=== PATIENT | female | born 1960 ===

== ENCOUNTER 2017-04-15 11:50 | Inpatient (IN) | payer OTHER ==
[2017-04-15] MEDS ORDERED: Sodium Chloride 0.9% 1,000 ML ONE ×2 (12:21→16:42)
[2017-04-15] MEDS ORDERED: Albuterol-Ipratrop 3 mg / 0.5 (3 ml) UD ONE (12:22)
[2017-04-15 12:29] VITALS: BMI 28.7
[2017-04-15] MEDS ORDERED: Sodium Chloride 0.9% 1,000 ML IV ONE ×3 (12:30→12:52)
[2017-04-15] MEDS ORDERED: Albuterol-Ipratrop 3 mg / 0.5 (3 ml) UD INH STA (12:31)
--- NOTE | 2017-04-15 12:37 | C.PDOC ---
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 Patient has h/o rheumatoid arthritis, HTN and multiple myeloma, gets methotrexate since 2014, has never had prior side effect/reaction. She denies h /o asthma, CAD, CHF, CT, but admits to smoking history. PMD Dr. Holt Time Seen by Provider: 04/15/17 12:28 Chief Complaint (Nursing): Dizziness/Lightheaded History Per: Patient, EMS History/Exam Limitations: clinical condition (diaphoretic, sob) Current Symptoms Are (Timing): Still Present Current Respiratory Medications: See Home Med List Severity: Moderate Past Medical History Reviewed: Historical Data, Nursing Documentation, Vital Signs Vital Signs: Last Vital Signs Temp 98.5 F 04/19/17 07:30 Pulse 57 L 04/19/17 07:30 Resp 18 04/19/17 07:30 BP 141/82 04/19/17 07:30 Pulse Ox 98 04/21/17 08:51 - Medical History PMH: Rheumatoid Arthritis Other PMH: multiple myeloma Family History: States: No Known Family Hx Review Of Systems Except As Marked, All Systems Reviewed And Found Negative. Cardiovascular: Positive for: Other (chest pressure). Negative for: Palpitations Respiratory: Positive for: Shortness of Breath, Wheezing Gastrointestinal: Positive for: Nausea, Vomiting, Abdominal Pain, Diarrhea Neurological: Positive for: Dizziness Physical Exam - Physical Exam Appears: In Acute Distress Skin: Diaphoretic, Pale Head: Normacephalic Eye(s): bilateral: Normal Inspection Oral Mucosa: Moist Cardiovascular: Rhythm Regular (tachycardic ) Respiratory: Accessory Muscle Use (mild), No Rales, No Rhonchi, Wheezing ( expiratory wheezing B/L) Gastrointestinal/Abdominal: Normal Exam, Bowel Sounds, Soft, No Tenderness Extremity: No Calf Tenderness Neurological/Psych: Oriented x3 ED Course And Treatment - Laboratory Results Result Diagrams: 04/19/17 07:05 04/17/17 08:08 ECG: Interpreted By Me, Viewed By Me (NSE 97 bpm, nromal axis, no acute ST/T wave changes) ECG Interpretation: Normal O2 Sat by Pulse Oximetry: 98 (RA) Pulse Ox Interpretation: Normal - Other Rad CXR X-Ray: Viewed By Me, Read By Radiologist Interpretation: Accession No. : [id number]. Patient Name / ID : OMID NAGY / [id number]. Exam Date : 04/15/2017 12:34:41 ( Approved ). Study Comment : Sex / Age : F / 6Y. Creator : EKATERINA MADISON. Dictator : Masood Sims MD. House Detective : Chemical Engineering Teacher : Masood Sims MD. Approver2 : Report Date : 04/15/2017 12:50:39. My Comment : . PROCEDURE: CHEST RADIOGRAPH, 1 VIEW. HISTORY: SOB. COMPARISON: None available. FINDINGS: LUNGS: Poor inspiration with low lung volumes, mild crowded bronchovascular markings and mild bibasilar atelectasis right greater than left. PLEURA: No pneumothorax or pleural fluid seen. CARDIOVASCULAR: Normal. OSSEOUS STRUCTURES: No significant abnormalities. VISUALIZED UPPER ABDOMEN: Normal. OTHER FINDINGS: None. IMPRESSION: Poor inspiration with low lung volumes, mild crowded bronchovascular markings and mild bibasilar atelectasis right greater than left - CT Scan/US VQ SCAN Other Rad Studies (CT/US): Read By Radiologist, Radiology Report Reviewed CT/US Interpretation: Accession No. : [id number]. Patient Name / ID : OMID NAGY / [id number]. Exam Date : 04/15/2017 15:49:41 ( Approved ). Study Comment : Sex / Age : F Y. Creator : Sudhir Watts MD. Dictator : Sudhir Watts MD. House Detective : Chemical Engineering Teacher : Sudhir Watts MD. Approver2 : Report Date : 04/15/2017 16:57:51. My Comment : . This report is currently processing and HAS NOT BEEN OFFICIALLY SIGNED BY THE PHYSICIAN - ESTIMATED TIME OF APPROVAL IS 04/15/2017 17:02. COMPARISON: Not available. TECHNIQUE: 12.3 mCi technetium 99-m Xe-133 Gas. 3.4 mCI technetium 99-m MAA administered intravenously. FINDINGS: VENTILATION COMPONENT: No ventilatory defect. No significant air trapping. PERFUSION COMPONENT: Moderate circumscribed defect in the lower right lung, possibly artifact. No other perfusion defect identified. IMPRESSION: Intermediate probability ventilation perfusion scan for pulmonary embolism. Progress Note: Blood work, CXR, EKG, CTA chest ordered. Patient given multiple IV boluses, IV solumedrol, duoneb treatments, IV zofran. 15:00- Told by support services tech patient is unable to get CTA chest due to history of multiple myeloma, can have contrast reaction. Confirmed with Dr. Monge. VQ scan ordered. 17:30- Discussed patient with linux systems engineer Dr. Chau, he recommends telemetry admission for patient, thinks she has improved significantly and no longer needs ICU. VQ scan shows moderate prob for PE - SC Lovenox ordered. D-dimer ordered since unable to obtain CTA chest. VBG ordered. 17:51-Call placed to Dr Fernando Holt (Manager Money) to make aware of patients status. No answer Reevaluation Time: 17:30 Reassessment Condition: Improved (Patient significantly improved, states she feels much better. BP 133/60, POx 98% on RA, HR WNL.) - Physician Consult Information Physician Contacted: Amor Mcconnell Outcome Of Conversation: Discussed with Dr. Carmelo Mcconnell, agrees with admission to his service. Critical Care Time - Critical Care Note Total Time (in mins): 50 Documented critical care: time excludes all time spent performing seperately billable procedures. Medical Decision Making Medical Decision Making: differential diagnoses considered: PE, adverse reaction to methotrexate, septic shock, CT/ACS, multiple myeloma vs rheumatoid arthritis complication Disposition - Disposition Disposition: HOSPITALIZED Disposition Time: 17:19 Condition: FAIR - Clinical Impression Clinical Impression: Pulmonary embolism, Hypotension, Methotrexate adverse reaction, Rheumatoid arthritis, Near syncope Decision To Admit - Pt Status Changed To: Hospital Disposition Of: Inpatient - Admit Certification Admit to Inpatient:: After my assessment, the patient will require hospitalization for at least two midnights. This is because of the severity of symptoms shown, intensity of services needed, and/or the medical risk in this patient being treated as an outpatient. - InPatient: Physician Admission Certification: I certify that this patient requires 2 or more midnights of care for the following reason:: see notes - . Bed Request Type: Telemetry Admitting Physician: Amor Mcconnell Patient Diagnosis: Pulmonary embolism, Hypotension, Methotrexate adverse reaction, Rheumatoid arthritis, Near syncope
[2017-04-15 13:01] LABS: BASO # 0.1 K/uL (0.0-0.2); BASO % 0.6 % (0.0-2.0); EOS # 0.1 K/uL (0.0-0.7); EOS % 0.4 % (0.0-4.0); LYMPH # 2.9 K/uL (1.0-4.3); LYMPH % 23.1 % (20.0-40.0); MEAN CELL VOLUME 100.8 fL (81.0-99.0); MEAN CORPUSCULAR HEMOGLOBIN 33.3 pg (27.0-31.0); MEAN CORPUSCULAR HGB CONC 33.1 g/dL (33.0-37.0); MEAN PLATELET VOLUME 9.3 fL (7.2-11.7); MONO # 0.6 K/uL (0.0-0.8); MONO % 4.4 % (0.0-10.0); RED CELL DISTRIBUTION WIDTH 14.5 % (11.5-14.5); WHITE BLOOD COUNT 12.7 K/uL (4.8-10.8)
[2017-04-15 13:09] LABS: INR 0.9
[2017-04-15 13:41] LABS: ABG ALLEN TEST A; DRAW SITE LR
--- NOTE | 2017-04-15 13:54 | RAD ---
PROCEDURE: CHEST RADIOGRAPH, 1 VIEW HISTORY: SOB COMPARISON: None available. FINDINGS: LUNGS: Poor inspiration with low lung volumes, mild crowded bronchovascular markings and mild bibasilar atelectasis right greater than left PLEURA: No pneumothorax or pleural fluid seen. CARDIOVASCULAR: Normal. OSSEOUS STRUCTURES: No significant abnormalities. VISUALIZED UPPER ABDOMEN: Normal. OTHER FINDINGS: None. IMPRESSION: Poor inspiration with low lung volumes, mild crowded bronchovascular markings and mild bibasilar atelectasis right greater than left
[2017-04-15] MEDS ORDERED: Sodium Chloride 0.9% 500 ML IV ONE ×2 (14:11→15:11)
[2017-04-15 14:37] LABS: CHLORIDE 107 mmol/L (98-107)
[2017-04-15 14:38] LABS: POTASSIUM 3.2 mmol/L (3.6-5.2); SODIUM 140 mmol/L (132-148)
[2017-04-15 14:40] LABS: AST/SGOT 18 U/L (14-36); BILIRUBIN,TOTAL 0.5 mg/dL (0.2-1.3); BLOOD UREA NITROGEN 22 mg/dL (7-17); CARBON DIOXIDE 19 mmol/L (22-30); GFR AFRICAN-AMERICAN > 60; TOTAL PROTEIN 6.5 g/dL (6.3-8.3)
[2017-04-15 14:41] LABS: ALKALINE PHOSPHATASE 49 U/L (38-126); ALT/SGPT 27 U/L (9-52); CALCIUM 7.2 mg/dl (8.6-10.4); GLUCOSE,RANDOM 140 mg/dL (65-105)
[2017-04-15] MEDS ORDERED: Potassium Chloride 20 mEq ER Tab PO STA (14:55)
[2017-04-15] MEDS ORDERED: Potassium Chloride 20 mEq ER Tab PO ONE (16:42)
[2017-04-15] MEDS ORDERED: Sodium Chloride 0.9% 2,000 ML ONE (16:57)
--- NOTE | 2017-04-15 17:00 | NM ---
COMPARISON: Not available TECHNIQUE: 12.3 mCi technetium 99-m Xe-133 Gas. 3.4 mCI technetium 99-m MAA administered intravenously. FINDINGS: VENTILATION COMPONENT: No ventilatory defect. No significant air trapping. PERFUSION COMPONENT: Moderate circumscribed defect in the lower right lung, possibly artifact. No other perfusion defect identified. IMPRESSION: Intermediate probability ventilation perfusion scan for pulmonary embolism.
[2017-04-15] MEDS ORDERED: Enoxaparin 40 mg Syringe SC STA (17:28)
[2017-04-15] MEDS ORDERED: Enoxaparin 100 mg Syringe SC ONE (17:45)
[2017-04-15 18:06] LABS: RBC URINE 13 /hpf (0-3); URINE BACTERIA OCC (<OCC); URINE BILIRUBIN NEGATIVE (NEGATIVE); URINE BLOOD 1+ (NEGATIVE); URINE COLOR Yellow (YELLOW); URINE GLUCOSE (UA) 1+ mg/dL (Normal); URINE KETONE TRACE mg/dL (NEGATIVE); URINE LEUKOCYTE ESTERASE NEG Leu/uL (Negative); URINE PROTEIN NEGATIVE (NEGATIVE); URINE UROBILINOGEN NORMAL mg/dL (0.2-1.0); WBC URINE 7 /hpf (0-5)
[2017-04-15 18:28] LABS: VENOUS BLOOD GAS BASE EXCESS -8.7 mmol/L (0.0-2.0); VENOUS BLOOD GAS PCO2 43 mmHg (40-60); VENOUS BLOOD PH 7.24 (7.32-7.43)
[2017-04-15] MEDS ORDERED: ACETAMIN PO PRN (20:57)
[2017-04-15] MEDS ORDERED: BUTALBIT PO PRN (20:57)
[2017-04-15] MEDS ORDERED: CODEINE PO PRN (20:57)
[2017-04-15] MEDS ORDERED: CAFF PO PRN (20:57)
--- NOTE | 2017-04-15 21:08 | CP.PCM.HP ---
History of Present Illness - History of Present Illness History of Present Illness: 56-year-old female patient with past medical history of diabetes mellitus, hypertension, rheumatoid arthritis, multiple myeloma, herniated disc, anxiety, depression who presented to ER for cardiac evaluation of shortness of breath, dizziness and chest tightness for 1 day. 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 Patient has been recently seeing methotrexate treatment since 2014 and has never experienced this before. Patient reports that once she got home she developed lip/tongue numbness and a 5 episode of vomiting that continue while in the emergency room. Patient reports brownish color in 1 episode of vomiting. Admits to feeling as though she might pass out but never lost consciousness. Denies any recent episode of chest pain and shortness of breath on exertion prior to this episode. Patient also complained of orthopnea. Also complains for following several times in the last month. Present on Admission - Present on Admission Any Indicators Present on Admission: No Past Patient History - Past Medical History & Family History Past Medical History?: Yes - Past Social History Smoking Status: Light Smoker < 10 Cigarettes Daily - CARDIAC Hx Hypertension: Yes - NEUROLOGICAL Hx Migraine: Yes Other/Comment: brain tumor - ENDOCRINE/METABOLIC Hx Diabetes Mellitus Type 2: Yes Other/Comment: Multiple Myeloma - MUSCULOSKELETAL/RHEUMATOLOGICAL Hx Falls: No Hx Rheumatoid Arthritis: Yes - PSYCHIATRIC Hx Anxiety: Yes Hx Depression: Yes Hx Substance Use: No - SURGICAL HISTORY Hx Surgeries: No - ANESTHESIA Hx Anesthesia: No Meds Allergies/Adverse Reactions: Allergies Allergy/AdvReac Type Severity Reaction Status Date / Time No Known Allergies Allergy Verified 04/15/17 12:29 Physical Exam - Constitutional Appears: Well - Head Exam Head Exam: ATRAUMATIC, NORMAL INSPECTION, NORMOCEPHALIC - Eye Exam Eye Exam: EOMI, Normal appearance, PERRL Pupil Exam: NORMAL ACCOMODATION, PERRL - ENT Exam ENT Exam: Mucous Membranes Moist, Normal Exam - Neck Exam Neck exam: Positive for: Normal Inspection - Respiratory Exam Respiratory Exam: Decreased Breath Sounds - Cardiovascular Exam Cardiovascular Exam: REGULAR RHYTHM, +S1, +S2 - GI/Abdominal Exam GI & Abdominal Exam: Diminished Bowel Sounds, Soft - Rectal Exam Rectal Exam: Deferred Results - Vital Signs Recent Vital Signs: Last Vital Signs Temp 98.1 F 04/15/17 19:45 Pulse 92 H 04/15/17 19:45 Resp 20 04/15/17 19:45 BP 100/44 L 04/15/17 19:45 Pulse Ox 96 04/15/17 19:45 - Labs Result Diagrams: 04/19/17 07:05 04/17/17 08:08 Labs: Laboratory Results - last 24 hr 04/15/17 04/15/17 04/15/17 17:30 17:37 18:25 D-Dimer, Quantitative 2977 H pO2 22 L VBG pH 7.24 L VBG pCO2 43 VBG HCO3 16.2 VBG Total CO2 19.7 L VBG O2 Sat (Calc) 37.6 L VBG Base Excess -8.7 L VBG Potassium 4.0 Sodium 141.0 Chloride 112.0 H Glucose 259 H Lactate 4.1 H* Crit Value Called To Dr. arias Crit Value Called By Antonio casillas Crit Value Read Back Y Blood Gas Notified Time 1828 POC Glucose (mg/dL) Venous Blood Potassium 4.0 Urine Color Yellow Urine Clarity Hazy Urine pH 5.0 Ur Specific [place] 1.010 Urine Protein Negative Urine Glucose (UA) 1+ Urine Ketones Trace Urine Blood 1+ H Urine Nitrate Negative Urine Bilirubin Negative Urine Urobilinogen Normal Ur Leukocyte Esterase Neg Urine WBC (Auto) 7 H Urine RBC (Auto) 13 H Ur Squamous Epith Cells 3 Urine Bacteria Occ H 04/15/17 20:23 D-Dimer, Quantitative pO2 VBG pH VBG pCO2 VBG HCO3 VBG Total CO2 VBG O2 Sat (Calc) VBG Base Excess VBG Potassium Sodium Chloride Glucose Lactate Crit Value Called To Crit Value Called By Crit Value Read Back Blood Gas Notified Time POC Glucose (mg/dL) 311 H Venous Blood Potassium Urine Color Urine Clarity Urine pH Ur Specific [place] Urine Protein Urine Glucose (UA) Urine Ketones Urine Blood Urine Nitrate Urine Bilirubin Urine Urobilinogen Ur Leukocyte Esterase Urine WBC (Auto) Urine RBC (Auto) Ur Squamous Epith Cells Urine Bacteria Assessment & Plan (1) Dyspnea Status: Acute (2) HTN (hypertension) Status: Acute (3) Herniated disc Status: Acute (4) Hypotension Status: Acute (5) Methotrexate adverse reaction Status: Acute (6) Multiple myeloma Status: Acute (7) Near syncope Status: Acute (8) Near syncope Status: Acute (9) Pulmonary embolism Status: Acute (10) Pulmonary embolism Status: Acute (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
[2017-04-15] MEDS: Enoxaparin 100 mg Syringe SC SCH (22:01)
--- NOTE | 2017-04-16 09:44 | CP.PCM.CON ---
<Winsome Rosas - Last Filed: 04/16/17 12:41> History of Present Illness - History of Present Illness History of Present Illness: Cardiology Consult Note -Dr. Phillips Reason: Shortness of breath X 1 day HPI: This patient is a 56 year old female with past medical history of DM, HTN, Rheumatoid arthritis, Multiple myeloma, herniated disks, anxiety, depression, who is being seen for cardiac evaluation of shortness of breath, dizziness and chest tightness for 1 day. 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 She has been receiving MTX treatments since 2014 and has never experienced this before. Patient reports that once she got home she developed lip/tongue numbness and 5 episodes of vomiting that continued while in the emergency room. She reports brownish color in one episode of vomiting. Admits to feeling "as though she might pass out" but never lost consciousness. She denies any recent episodes of chest pain and shortness of breath on exertion prior to this episode. She reports that she sleeps with several pillows at night, however it does not change her ability to breathe. Patient reports that she has fallen several times in the last month, stating that her "leg went out", but does not report dizziness, LOC, trauma. She does report history of headaches secondary to her migraines. PMHx: DM, HTN, Rheumatoid arthritis, Multiple myeloma, herniated disks, migraines, anxiety, depression. Hospitalizations: none Surgeries: none Family History: Social: 20 pack year smoker Allergies: NKDA EKG: (04/16/17) Normal sinus rhythm, no acute ST changes, normal axis. Rate slightly elevated: 96 bpm. Chest X-ray: (mild crowded bronchovascular markings, mild bi-basilar atelectasis R>L VQ scan: intermediate probability ventilation perfusion scan for PE Troponins: 1: < 0.012 Review of Systems - Constitutional Constitutional: Frequent Falls, Headache. absent: Chills, Fever - EENT Ears: Dizziness Nose/Mouth/Throat: Nasal Congestion, Nasal Discharge - Cardiovascular Cardiovascular: Dyspnea. absent: Chest Pain (tightness), Chest Pain at Rest, Palpitations, Syncope - Respiratory Respiratory: absent: Cough, Dyspnea Past Patient History - Past Medical History & Family History Past Medical History?: Yes - Past Social History Smoking Status: Light Smoker < 10 Cigarettes Daily - CARDIAC Hx Hypertension: Yes - NEUROLOGICAL Hx Migraine: Yes Other/Comment: brain tumor - ENDOCRINE/METABOLIC Hx Diabetes Mellitus Type 2: Yes Other/Comment: Multiple Myeloma - MUSCULOSKELETAL/RHEUMATOLOGICAL Hx Falls: No Hx Rheumatoid Arthritis: Yes - PSYCHIATRIC Hx Anxiety: Yes Hx Depression: Yes Hx Substance Use: No - SURGICAL HISTORY Hx Surgeries: No - ANESTHESIA Hx Anesthesia: No Meds Allergies/Adverse Reactions: Allergies Allergy/AdvReac Type Severity Reaction Status Date / Time No Known Allergies Allergy Verified 04/15/17 12:29 - Medications Medications: Current Medications Alprazolam (Xanax) 0.5 mg PO BID PRN PRN Reason: Anxiety Amlodipine Besylate (Norvasc) 10 mg PO DAILY [facility] Aspirin (Aspirin Chewable) 81 mg PO DAILY [facility] Duloxetine HCl (Cymbalta) 60 mg PO DAILY [facility] Enoxaparin Sodium (Lovenox) 90 mg SC Q12 [facility] Last Admin: 04/15/17 22:01 Dose: 90 mg Ergocalciferol (Drisdol 50,000 Intl Units Cap) 1 cap PO QWK [facility] Folic Acid (Folic Acid) 1 mg PO DAILY [facility] Glipizide (Glucotrol Xl) 10 mg PO DAILY [facility] Home Med (Butalbit/Acetamin/Caff/Codeine [Ujtyqh-Uwlxdywedyu-Ixzi-Codein]) 1 cap PO Q8 PRN PRN Reason: Pain, moderate (4-7) Indomethacin (Indocin Sr) 75 mg PO DAILY [facility] Isosorbide Mononitrate (Imdur) 30 mg PO DAILY [facility] Lisinopril (Zestril) 40 mg PO BID [facility] Metformin HCl (Glucophage) 1,000 mg PO BID [facility] Last Admin: 04/15/17 21:57 Dose: 1,000 mg Metoprolol Succinate (Toprol Xl) 50 mg PO BID [facility] Pantoprazole Sodium (Protonix Ec Tab) 40 mg PO DAILY [facility] Rosuvastatin Calcium (Crestor) 20 mg PO HS [facility] Last Admin: 04/15/17 21:58 Dose: 20 mg Tramadol HCl (Ultram) 50 mg PO BID [facility] Last Admin: 04/16/17 06:37 Dose: 50 mg Zolpidem Tartrate (Ambien) 5 mg PO HS PRN PRN Reason: Insomnia Last Admin: 04/15/17 22:00 Dose: 5 mg Results - Vital Signs Recent Vital Signs: Last Vital Signs Temp 98.1 F 04/16/17 08:26 Pulse 80 04/16/17 08:26 Resp 20 04/16/17 08:26 BP 118/69 04/16/17 08:26 Pulse Ox 97 04/16/17 08:26 - Labs Result Diagrams: 04/15/17 12:56 04/15/17 14:10 Labs: Laboratory Results - last 24 hr 04/15/17 04/15/17 04/15/17 17:30 17:37 18:25 D-Dimer, Quantitative 2977 H pO2 22 L VBG pH 7.24 L VBG pCO2 43 VBG HCO3 16.2 VBG Total CO2 19.7 L VBG O2 Sat (Calc) 37.6 L VBG Base Excess -8.7 L VBG Potassium 4.0 Sodium 141.0 Chloride 112.0 H Glucose 259 H Lactate 4.1 H* Crit Value Called To Dr. arias Crit Value Called By Antonio casillas Crit Value Read Back Y Blood Gas Notified Time 1828 POC Glucose (mg/dL) Venous Blood Potassium 4.0 Urine Color Yellow Urine Clarity Hazy Urine pH 5.0 Ur Specific [place] 1.010 Urine Protein Negative Urine Glucose (UA) 1+ Urine Ketones Trace Urine Blood 1+ H Urine Nitrate Negative Urine Bilirubin Negative Urine Urobilinogen Normal Ur Leukocyte Esterase Neg Urine WBC (Auto) 7 H Urine RBC (Auto) 13 H Ur Squamous Epith Cells 3 Urine Bacteria Occ H 04/15/17 04/16/17 20:23 06:36 D-Dimer, Quantitative pO2 VBG pH VBG pCO2 VBG HCO3 VBG Total CO2 VBG O2 Sat (Calc) VBG Base Excess VBG Potassium Sodium Chloride Glucose Lactate Crit Value Called To Crit Value Called By Crit Value Read Back Blood Gas Notified Time POC Glucose (mg/dL) 311 H 164 H Venous Blood Potassium Urine Color Urine Clarity Urine pH Ur Specific [place] Urine Protein Urine Glucose (UA) Urine Ketones Urine Blood Urine Nitrate Urine Bilirubin Urine Urobilinogen Ur Leukocyte Esterase Urine WBC (Auto) Urine RBC (Auto) Ur Squamous Epith Cells Urine Bacteria Assessment & Plan (1) Dyspnea Assessment and Plan: 56 year old F with PMHx of DM, HTN, depression, anxiety, migraines, MM, RA presented overnight for numbness and tingling on the face. In the ED patient reports sudden onset of SOB. Patient given multiple IV boluses, IV solumedrol, duoneb treatments in the ED. Patient with elevated D. Dimer and abnormal LUNG VQ scan. Pulmonary Embolism treatment started in the ED. * Continue Lovenox 90 mg SC Q12H * Monitor on telemetry * f/u ECHO Patient undergoing neuro workup. Follow up recommendations. Imaging: EKG: (04/16/17) Normal sinus rhythm, no acute ST changes, normal axis. Rate slightly elevated: 96 bpm. Chest X-ray: (mild crowded bronchovascular markings, mild bi-basilar atelectasis R>L VQ scan: intermediate probability ventilation perfusion scan for PE Troponins: 1: < 0.012 Status: Acute (2) Near syncope Assessment and Plan: * Follow up ECHO * Follow up Carotid dopplers * Follow up orthostatic blood pressure check * EKG shows no arrhythmia or acute ST changes. Normal QTc. Patient undergoing neuro workup. Follow up recommendations. Status: Acute (3) HTN (hypertension) Assessment and Plan: Patient with hypotension on admission. Improved now. Amlodipine 10 mg PO Daily Lisinopril 20 mg PO daily Lopressor 50 mg PO BID Status: Acute (4) Pulmonary embolism Assessment and Plan: Patient with elevated D. Dimer and abnormal LUNG VQ scan. Pulmonary Embolism treatment started in the ED. * Continue Lovenox 90 mg SC Q12H Status: Acute - Assessment and Plan (Free Text) Assessment: Will discuss with Dr. Phillips <Bharath Phillips - Last Filed: 04/16/17 22:24> Meds - Medications Medications: Current Medications Acetaminophen/Butalbital/Caffeine (Fioricet) 1 tab PO BID PRN PRN Reason: Migraine headache Last Admin: 04/16/17 21:49 Dose: 1 tab Alprazolam (Xanax) 0.5 mg PO BID PRN PRN Reason: Anxiety Amlodipine Besylate (Norvasc) 10 mg PO DAILY [facility] Last Admin: 04/16/17 10:15 Dose: 10 mg Aspirin (Aspirin Chewable) 81 mg PO DAILY [facility] Last Admin: 04/16/17 13:26 Dose: 81 mg Duloxetine HCl (Cymbalta) 60 mg PO DAILY [facility] Last Admin: 04/16/17 10:16 Dose: 60 mg Enoxaparin Sodium (Lovenox) 90 mg SC Q12 [facility] Last Admin: 04/16/17 21:50 Dose: 90 mg Ergocalciferol (Drisdol 50,000 Intl Units Cap) 1 cap PO QWK [facility] Last Admin: 04/16/17 10:15 Dose: 1 cap Folic Acid (Folic Acid) 1 mg PO DAILY [facility] Last Admin: 04/16/17 10:15 Dose: 1 mg Glipizide (Glucotrol Xl) 10 mg PO DAILY [facility] Last Admin: 04/16/17 10:15 Dose: 10 mg Indomethacin (Indocin) 25 mg PO TID [facility] Isosorbide Mononitrate (Imdur) 30 mg PO DAILY [facility] Last Admin: 04/16/17 10:16 Dose: 30 mg Lisinopril (Zestril) 20 mg PO DAILY [facility] Last Admin: 04/16/17 10:16 Dose: 20 mg Metformin HCl (Glucophage) 1,000 mg PO BID [facility] Last Admin: 04/16/17 18:43 Dose: 1,000 mg Metoprolol Tartrate (Lopressor) 50 mg PO BID [facility] Last Admin: 04/16/17 18:41 Dose: Not Given Pantoprazole Sodium (Protonix Ec Tab) 40 mg PO DAILY [facility] Last Admin: 04/16/17 10:17 Dose: 40 mg Rosuvastatin Calcium (Crestor) 20 mg PO HS [facility] Last Admin: 04/16/17 21:49 Dose: 20 mg Zolpidem Tartrate (Ambien) 5 mg PO HS PRN PRN Reason: Insomnia Last Admin: 04/15/17 22:00 Dose: 5 mg Results - Vital Signs Recent Vital Signs: Last Vital Signs Temp 98.1 F 04/16/17 16:00 Pulse 67 04/16/17 16:00 Resp 18 04/16/17 16:00 BP 117/56 L 04/16/17 16:00 Pulse Ox 96 04/16/17 16:00 - Labs Result Diagrams: 04/15/17 12:56 04/15/17 14:10 Labs: Laboratory Results - last 24 hr 04/16/17 04/16/17 04/16/17 06:36 11:30 16:51 POC Glucose (mg/dL) 164 H 159 H 154 H Assessment & Plan - Assessment and Plan (Free Text) Plan: Patient seen and evaluated with the medical appointment clerk Agree with the plan - Date & Time Date: 04/16/17 Time: 13:30
[2017-04-16] MEDS: Apap-Butalbital-Caffeine 325-50-40mg Tab PO PRN ×2 (09:59→21:49)
[2017-04-16] MEDS ORDERED: Ergocalciferol 50,000 Intl Units Cap PO SCH (10:00)
[2017-04-16] MEDS ORDERED: Enoxaparin 40 mg Syringe SC SCH (10:00)
[2017-04-16] MEDS ORDERED: INDOMETHACIN 75 MG PO SCH (10:00)
[2017-04-16] MEDS: GlipiZIDE 10 mg SR Tab PO SCH (10:15)
[2017-04-16] MEDS: Pantoprazole 40 mg EC Tab PO SCH (10:17)
[2017-04-16] MEDS: Enoxaparin 100 mg Syringe SC SCH ×2 (10:17→21:50)
--- NOTE | 2017-04-16 10:35 | CON ---
DATE: 04/16/2017 REASON FOR CONSULTATION: Brain cyst and episode of almost passing out. HISTORY OF PRESENTING ILLNESS: The patient is a 56-year-old female who has been asked for evaluation of an episode of almost passing out and history of brain cyst. The patient said that she was in her doctor's office getting her infusion of methotrexate when patient felt dizzy and numbness and felt w as going to pass out. She has been getting these injections in the past, however, never passed out o r felt going to pass out before. At the moment, she feels fine. She does complain of some headaches . She has history of headaches in the past. REVIEW OF SYSTEMS: Positive for headache. Denies any chest pain, shortness of breath, abdominal omar n, constipation, diarrhea, dysuria, pyuria, cough, sputum production. PAST MEDICAL HISTORY: Includes rheumatoid arthritis, multiple myeloma. MEDICATIONS: At home include aspirin, Fioricet, Lipitor, tramadol, isosorbide mononitrate, methotrex ate, metformin, Zestril, Ambien, folic acid, duloxetine, alprazolam, Norvasc, glipizide, Toprol and i ndomethacin. ALLERGIES: No known drug allergies. SOCIAL HISTORY: She does smoke cigarettes. Denies use of alcohol or illicit drugs. FAMILY HISTORY: Reviewed and noncontributory to the case. PHYSICAL EXAMINATION: GENERAL: The patient is a middle-aged female, lying on the bed, in no acute distress. VITAL SIGNS: Her blood pressure is 118/69, heart rate is 80 per minute, breathing at a rate of 16 pe r minute, temperature is 98.1 degrees Fahrenheit. HEENT: Head is normocephalic, atraumatic. NECK: Supple. There are no carotid bruits. LUNGS: Clear. CARDIOVASCULAR: S1, S2 audible. No murmurs. ABDOMEN: Soft and nontender with bowel sounds present. NEUROLOGIC EXAMINATION: MENTAL STATUS: The patient is awake, alert, oriented to time, place, person. Speech is fluent. Nam ing and repetition normal. Memory and cognition are intact. CRANIAL NERVES: Pupils are 4 mm bilaterally, reactive to light. Visual landaverde are full. Extraocula r movements are intact. There is no facial asymmetry. Palate is upgoing bilaterally and tongue is m idline. MOTOR: Tone is normal. Power is 5/5 bilaterally in all extremities. Reflexes +2 and symmetrical. Plantars downgoing bilaterally. CEREBELLAR: [id number] shows no dysmetria. GAIT: Narrow based. Romberg negative. LABORATORIES: Reviewed, shows WBC of 12.7, hemoglobin 15.2, hematocrit 46.0 and platelets of 373. I NR is 0.9. Sodium is 140, potassium 3.2, chloride 107, carbon dioxide 19, BUN of 22, creatinine of 0 .7 and glucose of 140. IMPRESSION: 1. Status post near syncope. 2. History of colloid cysto of the brain. RECOMMENDATIONS: 1. The patient to have MRI of the brain without contrast. 2. The patient to have an electroencephalogram. 3. The patient to have cardiac monitoring to rule out any cardiac arrhythmias. 4. Please continue supportive care and other treatment. Thank you for the opportunity to participate in the care of this patient. Jean-Pierre Henriquez MD cc: [id number] TT: 04/16/2017 10:35:10 Confirmation # [id number] Dictation # [id number]
--- NOTE | 2017-04-16 11:06 | CP.PCM.CON ---
History of Present Illness - History of Present Illness History of Present Illness: Reason for consultation: Abnormal CT scan and chest tightness 56-year-old female with history of multiple myeloma and rheumatoid arthritis also with long history of smoking presented to emergency room complaining of numbness and near syncope. Patient states she was in her doctor's office getting infusion of methotrexate when she felt dizzy with numbness and was going to pass out. Patient states this was also associated with some chest tightness and shortness of breath. In the emergency room V/Q scan consistent with intermediate probability for pulmonary embolism. Patient was started on Lovenox. Denies shortness of breath, denies chest pain now. Denies cough, denies fever or chills. Review of Systems - Review of Systems All systems: reviewed and no additional remarkable complaints except (Dizziness , numbness , chest tightness) Past Patient History - Past Medical History & Family History Past Medical History?: Yes - Past Social History Smoking Status: Light Smoker < 10 Cigarettes Daily (USED to be a heavy smoker) - CARDIAC Hx Hypertension: Yes - NEUROLOGICAL Hx Migraine: Yes Other/Comment: brain tumor - ENDOCRINE/METABOLIC Hx Diabetes Mellitus Type 2: Yes Other/Comment: Multiple Myeloma - MUSCULOSKELETAL/RHEUMATOLOGICAL Hx Falls: No Hx Rheumatoid Arthritis: Yes - PSYCHIATRIC Hx Anxiety: Yes Hx Depression: Yes Hx Substance Use: No - SURGICAL HISTORY Hx Surgeries: No - ANESTHESIA Hx Anesthesia: No Meds Allergies/Adverse Reactions: Allergies Allergy/AdvReac Type Severity Reaction Status Date / Time No Known Allergies Allergy Verified 04/15/17 12:29 - Medications Medications: Current Medications Acetaminophen/Butalbital/Caffeine (Fioricet) 1 tab PO BID PRN PRN Reason: Migraine headache Last Admin: 04/16/17 09:59 Dose: 1 tab Alprazolam (Xanax) 0.5 mg PO BID PRN PRN Reason: Anxiety Amlodipine Besylate (Norvasc) 10 mg PO DAILY [facility] Last Admin: 04/16/17 10:15 Dose: 10 mg Aspirin (Aspirin Chewable) 81 mg PO DAILY [facility] Duloxetine HCl (Cymbalta) 60 mg PO DAILY [facility] Last Admin: 04/16/17 10:16 Dose: 60 mg Enoxaparin Sodium (Lovenox) 90 mg SC Q12 [facility] Last Admin: 04/16/17 10:17 Dose: 90 mg Ergocalciferol (Drisdol 50,000 Intl Units Cap) 1 cap PO QWK [facility] Last Admin: 04/16/17 10:15 Dose: 1 cap Folic Acid (Folic Acid) 1 mg PO DAILY [facility] Last Admin: 04/16/17 10:15 Dose: 1 mg Glipizide (Glucotrol Xl) 10 mg PO DAILY [facility] Last Admin: 04/16/17 10:15 Dose: 10 mg Indomethacin (Indocin Sr) 75 mg PO DAILY [facility] Isosorbide Mononitrate (Imdur) 30 mg PO DAILY [facility] Last Admin: 04/16/17 10:16 Dose: 30 mg Lisinopril (Zestril) 20 mg PO DAILY [facility] Last Admin: 04/16/17 10:16 Dose: 20 mg Metformin HCl (Glucophage) 1,000 mg PO BID [facility] Last Admin: 04/16/17 10:16 Dose: 1,000 mg Metoprolol Tartrate (Lopressor) 50 mg PO BID [facility] Last Admin: 04/16/17 10:16 Dose: 50 mg Pantoprazole Sodium (Protonix Ec Tab) 40 mg PO DAILY [facility] Last Admin: 04/16/17 10:17 Dose: 40 mg Rosuvastatin Calcium (Crestor) 20 mg PO HS [facility] Last Admin: 04/15/17 21:58 Dose: 20 mg Zolpidem Tartrate (Ambien) 5 mg PO HS PRN PRN Reason: Insomnia Last Admin: 04/15/17 22:00 Dose: 5 mg Physical Exam - Constitutional Appears: No Acute Distress - Head Exam Head Exam: ATRAUMATIC, NORMOCEPHALIC - Eye Exam Eye Exam: Normal appearance - ENT Exam ENT Exam: Mucous Membranes Moist - Neck Exam Neck exam: Positive for: Normal Inspection - Respiratory Exam Respiratory Exam: Clear to Auscultation Bilateral - Cardiovascular Exam Cardiovascular Exam: REGULAR RHYTHM - GI/Abdominal Exam GI & Abdominal Exam: Normal Bowel Sounds, Soft - Extremities Exam Extremities exam: Positive for: normal inspection - Neurological Exam Neurological exam: Alert, Oriented x3 Results - Vital Signs Recent Vital Signs: Last Vital Signs Temp 98.1 F 04/16/17 08:26 Pulse 78 04/16/17 10:22 Resp 20 04/16/17 08:26 BP 144/78 04/16/17 10:22 Pulse Ox 97 04/16/17 08:26 - Labs Result Diagrams: 04/15/17 12:56 04/15/17 14:10 Labs: Laboratory Results - last 24 hr 04/15/17 04/15/17 04/15/17 17:30 17:37 18:25 D-Dimer, Quantitative 2977 H pO2 22 L VBG pH 7.24 L VBG pCO2 43 VBG HCO3 16.2 VBG Total CO2 19.7 L VBG O2 Sat (Calc) 37.6 L VBG Base Excess -8.7 L VBG Potassium 4.0 Sodium 141.0 Chloride 112.0 H Glucose 259 H Lactate 4.1 H* Crit Value Called To Dr. arias Crit Value Called By Antonio casillas Crit Value Read Back Y Blood Gas Notified Time 1828 POC Glucose (mg/dL) Venous Blood Potassium 4.0 Urine Color Yellow Urine Clarity Hazy Urine pH 5.0 Ur Specific [place] 1.010 Urine Protein Negative Urine Glucose (UA) 1+ Urine Ketones Trace Urine Blood 1+ H Urine Nitrate Negative Urine Bilirubin Negative Urine Urobilinogen Normal Ur Leukocyte Esterase Neg Urine WBC (Auto) 7 H Urine RBC (Auto) 13 H Ur Squamous Epith Cells 3 Urine Bacteria Occ H 04/15/17 04/16/17 20:23 06:36 D-Dimer, Quantitative pO2 VBG pH VBG pCO2 VBG HCO3 VBG Total CO2 VBG O2 Sat (Calc) VBG Base Excess VBG Potassium Sodium Chloride Glucose Lactate Crit Value Called To Crit Value Called By Crit Value Read Back Blood Gas Notified Time POC Glucose (mg/dL) 311 H 164 H Venous Blood Potassium Urine Color Urine Clarity Urine pH Ur Specific [place] Urine Protein Urine Glucose (UA) Urine Ketones Urine Blood Urine Nitrate Urine Bilirubin Urine Urobilinogen Ur Leukocyte Esterase Urine WBC (Auto) Urine RBC (Auto) Ur Squamous Epith Cells Urine Bacteria Assessment & Plan (1) Pulmonary embolism Status: Acute Comment: VQ scan is intermediate probability for pulmonary embolism. Echocardiogram and venous Doppler of lower extremities. Continue Lovenox 1 mg per KG. Cardiology evaluation. Seen by neurology. Patient advised to quit smoking (2) Near syncope Status: Acute
--- NOTE | 2017-04-16 14:07 | CP.PCM.PN ---
Subjective - Date & Time of Evaluation Date of Evaluation: 04/16/17 Time of Evaluation: 10:40 - Subjective Subjective: clinically same Objective - Vital Signs/Intake and Output Vital Signs (last 24 hours): Temp Pulse Resp BP Pulse Ox 98.1 F 78 20 144/78 97 04/16/17 08:26 04/16/17 10:22 04/16/17 08:26 04/16/17 10:22 04/16/17 08:26 Intake and Output: 04/16/17 04/16/17 06:59 18:59 Intake Total 560 Balance 560 - Medications Medications: Current Medications Acetaminophen/Butalbital/Caffeine (Fioricet) 1 tab PO BID PRN PRN Reason: Migraine headache Last Admin: 04/16/17 09:59 Dose: 1 tab Alprazolam (Xanax) 0.5 mg PO BID PRN PRN Reason: Anxiety Amlodipine Besylate (Norvasc) 10 mg PO DAILY [facility] Last Admin: 04/16/17 10:15 Dose: 10 mg Aspirin (Aspirin Chewable) 81 mg PO DAILY [facility] Last Admin: 04/16/17 13:26 Dose: 81 mg Duloxetine HCl (Cymbalta) 60 mg PO DAILY [facility] Last Admin: 04/16/17 10:16 Dose: 60 mg Enoxaparin Sodium (Lovenox) 90 mg SC Q12 [facility] Last Admin: 04/16/17 10:17 Dose: 90 mg Ergocalciferol (Drisdol 50,000 Intl Units Cap) 1 cap PO QWK [facility] Last Admin: 04/16/17 10:15 Dose: 1 cap Folic Acid (Folic Acid) 1 mg PO DAILY [facility] Last Admin: 04/16/17 10:15 Dose: 1 mg Glipizide (Glucotrol Xl) 10 mg PO DAILY [facility] Last Admin: 04/16/17 10:15 Dose: 10 mg Indomethacin (Indocin Sr) 75 mg PO DAILY [facility] Isosorbide Mononitrate (Imdur) 30 mg PO DAILY [facility] Last Admin: 04/16/17 10:16 Dose: 30 mg Lisinopril (Zestril) 20 mg PO DAILY [facility] Last Admin: 04/16/17 10:16 Dose: 20 mg Metformin HCl (Glucophage) 1,000 mg PO BID [facility] Last Admin: 04/16/17 10:16 Dose: 1,000 mg Metoprolol Tartrate (Lopressor) 50 mg PO BID [facility] Last Admin: 04/16/17 10:16 Dose: 50 mg Pantoprazole Sodium (Protonix Ec Tab) 40 mg PO DAILY [facility] Last Admin: 04/16/17 10:17 Dose: 40 mg Rosuvastatin Calcium (Crestor) 20 mg PO HS [facility] Last Admin: 04/15/17 21:58 Dose: 20 mg Zolpidem Tartrate (Ambien) 5 mg PO HS PRN PRN Reason: Insomnia Last Admin: 04/15/17 22:00 Dose: 5 mg - Labs Labs: PT 10.4 SECONDS (9.7-12.2) 04/15/17 12:56 INR 0.9 04/15/17 12:56 APTT 29 SECONDS (21-34) 04/15/17 12:56 - Constitutional Appears: Well - Head Exam Head Exam: ATRAUMATIC, NORMAL INSPECTION, NORMOCEPHALIC - Eye Exam Eye Exam: EOMI, Normal appearance, PERRL Pupil Exam: NORMAL ACCOMODATION, PERRL - ENT Exam ENT Exam: Mucous Membranes Moist, Normal Exam - Neck Exam Neck Exam: Full ROM, Normal Inspection. absent: Lymphadenopathy - Respiratory Exam Respiratory Exam: Decreased Breath Sounds - Cardiovascular Exam Cardiovascular Exam: REGULAR RHYTHM, +S1, +S2 - GI/Abdominal Exam GI & Abdominal Exam: Soft, Diminished Bowel Sounds - Rectal Exam Rectal Exam: Deferred Assessment and Plan (1) Dyspnea Status: Acute (2) HTN (hypertension) Status: Acute (3) Herniated disc Status: Acute (4) Hypotension Status: Acute (5) Methotrexate adverse reaction Status: Acute (6) Multiple myeloma Status: Acute (7) Near syncope Status: Acute (8) Near syncope Status: Acute (9) Pulmonary embolism Status: Acute (10) Pulmonary embolism Status: Acute (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
[2017-04-16] MEDS ORDERED: Potassium Chloride 10 mEq ER Tab PO STA (14:19)
[2017-04-16] MEDS ORDERED: Potassium Chloride 20 mEq ER Tab PO STA (14:21)
[2017-04-16] MEDS ORDERED: Gadodiamide 287 mg/ml 20 ml IV ONE (14:30)
--- NOTE | 2017-04-16 16:07 | MRI ---
PROCEDURE: MRI BRAIN WITH AND WITHOUT CONTRAST HISTORY: colloid cyst COMPARISON: None. TECHNIQUE: Multiplanar, multisequence MR images of the brain were obtained performed of following intravenous injection of approximately 16 cc of Omniscan contrast material. FINDINGS: HEMORRHAGE: No acute parenchymal, subarachnoid or extra-axial hemorrhage. No hemosiderin deposition identified on gradient echo weighted sequence. DWI: There are no acute or subacute infarcts seen on diffusion-weighted imaging. BRAIN PARENCHYMA: Small( approximately 5.2 mm x 4.3 mm x 2.6 mm) rounded/elliptical shaped nonenhancing focus of bright T1 in the dark T2 signal located at the level of the 3rd ventricle/foramen of Monro junction consistent with this patient's history of colloid cyst. No evidence of obstructive hydrocephalus. . There is a small dilated perivascular space right inferior basal ganglia. No additional parenchymal nor extra-axial masses. ENHANCEMENT: No definitive focal areas of abnormal contrast enhancement. No evidence of abnormal meningeal enhancement VENTRICLES: No hydrocephalus as above CRANIUM: The calvarium appears grossly unremarkable. ORBITS: Orbits and contents also unremarkable. PARANASAL SINUSES/MASTOIDS: Visualized paranasal sinuses are well-developed and currently well-aerated. There may be a few partially opacified mastoid air cells bilaterally. VASCULAR SYSTEM: Visualized major vascular flow voids at skull base are patent. OTHER FINDINGS: None . IMPRESSION: No evidence of acute intracranial hemorrhage or infarct. Small colloid cyst as described however there is no evidence of obstructive hydrocephalus.
--- NOTE | 2017-04-16 17:11 | CARD ---
APPROVED REPORT EXAM: Two-dimensional and M-mode echocardiogram with Doppler and color Doppler. Other Information Quality : AverageRhythm : NSR INDICATION Dizziness and Vertigo Dyspnea Congestive Heart Failure COPD POSSIBLE PE, RISK FACTORS Hypertension M-Mode DIMENSIONS RVDd1.07 (2.1-3.2cm)Left Atrium (MM)3.32 (2.5-4.0cm) IVSd0.81 (0.7-1.1cm)Aortic Root2.95 (2.2-3.7cm) LVDd6.05 (4.0-5.6cm)Aortic Cusp Exc.1.81 (1.5-2.0cm) PWd0.89 (0.7-1.1cm)FS (%) 26 % LVDs4.50 (2.0-3.8cm)LVEF (%)50 (>50%) Aortic Valve AoV Peak Xpfobzpw347.9cm/Sancho Peak GR.9mmHg Mitral Valve MV E Pjyterqx29.7cm/sMV A Sdjrnzaf71.7cm/sE/A ratio0.9 TDI E/Lateral E'0.0E/Medial E'0.0 Tricuspid Valve TR Peak Wadykoqm954xe/sTR Peak Gr.33wpGpSOSV27lyMq LEFT VENTRICLE The left ventricle is normal size. There is normal left ventricular wall thickness. The left ventricular function is normal. The left ventricular ejection fraction is within the normal range. about 65% No regional wall motion abnormalities noted. The left ventricular diastolic function is normal. No left ventricle thrombus noted on this study. There is no ventricular septal defect visualized. There is no left ventricular aneurysm. There is no mass noted in the left ventricle. RIGHT VENTRICLE The right ventricle is normal size. There is normal right ventricular wall thickness. The right ventricular systolic function is normal. ATRIA The left atrium size is normal. The right atrium size is normal. The interatrial septum is intact with no evidence for an atrial septal defect. AORTIC VALVE The aortic valve is normal in structure and function. No aortic regurgitation is present. There is no aortic valvular stenosis. There is no aortic valvular vegetation. MITRAL VALVE The mitral valve is normal in function. A calcified mass is attached to the anterior mitral valve leaflet, probably representing a calcified chordal attachment, which would be a normal variant. Clinical correlation. There is no evidence of mitral valve prolapse. There is no mitral valve stenosis. There is no mitral valve regurgitation noted. TRICUSPID VALVE The tricuspid valve is normal in structure and function. There is mild tricuspid valve regurgitation noted. There is no tricuspid valve prolapse or vegetation. There is no tricuspid valve stenosis. PULMONIC VALVE The pulmonary valve is normal in structure and function. There is no pulmonic valvular regurgitation. There is no pulmonic valvular stenosis. GREAT VESSELS The aortic root is normal in size. The ascending aorta is normal in size. The pulmonary artery is normal. The IVC is normal in size and collapses >50% with inspiration. PERICARDIAL EFFUSION The pericardium appears normal. There is no pleural effusion. <Conclusion> Normal LV EF and doppler A calcified mass is attached to the anterior mitral valve leaflet, probably representing a calcified chordal attachment, which would be a normal variant. Clinical correlation. A mobile clobular calcifed mass in the RV apex represents a focal clacification of a chordal attachment to the tricuspid valve..
--- NOTE | 2017-04-16 18:37 | CARD ---
APPROVED REPORT EKG Measurement Heart [id number] <Conclusion> Normal sinus rhythm Normal ECG
[2017-04-17 08:16] LABS: BASO % 0.3 % (0.0-2.0); EOS % 0.3 % (0.0-4.0); HEMATOCRIT 34.9 % (34.0-47.0); LYMPH # 2.2 K/uL (1.0-4.3); LYMPH % 26.9 % (20.0-40.0); MEAN CELL VOLUME 98.9 fL (81.0-99.0); MEAN CORPUSCULAR HEMOGLOBIN 33.8 pg (27.0-31.0); MEAN CORPUSCULAR HGB CONC 34.2 g/dL (33.0-37.0); MEAN PLATELET VOLUME 8.5 fL (7.2-11.7); MONO # 0.4 K/uL (0.0-0.8); MONO % 4.9 % (0.0-10.0); WHITE BLOOD COUNT 8.3 K/uL (4.8-10.8)
[2017-04-17 08:28] LABS: CHLORIDE 100 mmol/L (98-107); POTASSIUM 3.7 mmol/L (3.6-5.2); SODIUM 136 mmol/L (132-148)
[2017-04-17 08:31] LABS: BLOOD UREA NITROGEN 14 mg/dL (7-17); CALCIUM 8.6 mg/dl (8.6-10.4); CARBON DIOXIDE 27 mmol/L (22-30); GFR AFRICAN-AMERICAN > 60; GLUCOSE,RANDOM 135 mg/dL (65-105)
[2017-04-17] MEDS: GlipiZIDE 10 mg SR Tab PO SCH (10:32)
--- NOTE | 2017-04-17 10:32 | CP.PCM.PN ---
Subjective - Date & Time of Evaluation Date of Evaluation: 04/17/17 Time of Evaluation: 14:00 - Subjective Subjective: clinically same Objective - Vital Signs/Intake and Output Vital Signs (last 24 hours): Temp Pulse Resp BP Pulse Ox 98.1 F 65 20 146/88 96 04/17/17 09:14 04/17/17 09:14 04/17/17 09:14 04/17/17 09:14 04/17/17 09:14 Intake and Output: 04/17/17 04/17/17 06:59 18:59 Intake Total 110 Balance 110 - Medications Medications: Current Medications Acetaminophen/Butalbital/Caffeine (Fioricet) 1 tab PO BID PRN PRN Reason: Migraine headache Last Admin: 04/16/17 21:49 Dose: 1 tab Alprazolam (Xanax) 0.5 mg PO BID PRN PRN Reason: Anxiety Amlodipine Besylate (Norvasc) 10 mg PO DAILY [facility] Last Admin: 04/16/17 10:15 Dose: 10 mg Aspirin (Aspirin Chewable) 81 mg PO DAILY [facility] Last Admin: 04/16/17 13:26 Dose: 81 mg Duloxetine HCl (Cymbalta) 60 mg PO DAILY [facility] Last Admin: 04/16/17 10:16 Dose: 60 mg Enoxaparin Sodium (Lovenox) 90 mg SC Q12 [facility] Last Admin: 04/16/17 21:50 Dose: 90 mg Ergocalciferol (Drisdol 50,000 Intl Units Cap) 1 cap PO QWK [facility] Last Admin: 04/16/17 10:15 Dose: 1 cap Folic Acid (Folic Acid) 1 mg PO DAILY [facility] Last Admin: 04/16/17 10:15 Dose: 1 mg Glipizide (Glucotrol Xl) 10 mg PO DAILY [facility] Last Admin: 04/16/17 10:15 Dose: 10 mg Indomethacin (Indocin) 25 mg PO TID [facility] Isosorbide Mononitrate (Imdur) 30 mg PO DAILY [facility] Last Admin: 04/16/17 10:16 Dose: 30 mg Lisinopril (Zestril) 20 mg PO DAILY [facility] Last Admin: 04/16/17 10:16 Dose: 20 mg Metformin HCl (Glucophage) 1,000 mg PO BID [facility] Last Admin: 04/16/17 18:43 Dose: 1,000 mg Metoprolol Tartrate (Lopressor) 50 mg PO BID [facility] Last Admin: 04/16/17 18:41 Dose: Not Given Pantoprazole Sodium (Protonix Ec Tab) 40 mg PO DAILY [facility] Last Admin: 04/16/17 10:17 Dose: 40 mg Rosuvastatin Calcium (Crestor) 20 mg PO HS [facility] Last Admin: 04/16/17 21:49 Dose: 20 mg Zolpidem Tartrate (Ambien) 5 mg PO HS PRN PRN Reason: Insomnia Last Admin: 04/16/17 22:45 Dose: 5 mg - Labs Labs: 04/17/17 08:08 04/17/17 08:08 PT 10.4 SECONDS (9.7-12.2) 04/15/17 12:56 INR 0.9 04/15/17 12:56 APTT 29 SECONDS (21-34) 04/15/17 12:56 - Constitutional Appears: Well - Head Exam Head Exam: ATRAUMATIC, NORMAL INSPECTION, NORMOCEPHALIC - Eye Exam Eye Exam: EOMI, Normal appearance, PERRL Pupil Exam: NORMAL ACCOMODATION, PERRL - ENT Exam ENT Exam: Mucous Membranes Moist, Normal Exam - Neck Exam Neck Exam: Full ROM, Normal Inspection. absent: Lymphadenopathy - Respiratory Exam Respiratory Exam: Decreased Breath Sounds - Cardiovascular Exam Cardiovascular Exam: REGULAR RHYTHM, +S1, +S2 - GI/Abdominal Exam GI & Abdominal Exam: Soft, Diminished Bowel Sounds - Rectal Exam Rectal Exam: Deferred Assessment and Plan (1) Dyspnea Status: Acute (2) HTN (hypertension) Status: Acute (3) Herniated disc Status: Acute (4) Hypotension Status: Acute (5) Methotrexate adverse reaction Status: Acute (6) Multiple myeloma Status: Acute (7) Near syncope Status: Acute (8) Near syncope Status: Acute (9) Pulmonary embolism Status: Acute (10) Pulmonary embolism Status: Acute (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
[2017-04-17] MEDS: Enoxaparin 100 mg Syringe SC SCH ×2 (10:33→21:56)
[2017-04-17] MEDS: Pantoprazole 40 mg EC Tab PO SCH (10:33)
--- NOTE | 2017-04-17 12:19 | PN ---
DATE: 04/17/2017 SUBJECTIVE: The patient is lying on the bed, in no acute distress. Denies having any headache or di zziness at present. PHYSICAL EXAMINATION: VITAL SIGNS: Her blood pressure is 146/88, heart rate is 65 per minute, breathing at a rate of 16 pe r minute, temperature is 98.1 degrees Fahrenheit. HEENT: Normocephalic, atraumatic. NECK: Supple. There are no carotid bruits. LUNGS: Clear. CARDIOVASCULAR: S1, S2 audible. No murmurs. ABDOMEN: Soft and nontender with bowel sounds present. NEUROLOGIC EXAMINATION: MENTAL STATUS: The patient is awake, alert, oriented to time, place, and person. Speech is fluent. Naming and repetition normal. Memory and cognition are intact. CRANIAL NERVE EXAMINATION: Pupils are 4 mm bilaterally reactive to light. Visual landaverde are full. Extraocular movements are intact. There is no facial asymmetry. Palate is upgoing bilaterally and t ongue is midline. MOTOR EXAMINATION: Tone is normal. Power is 5/5 bilaterally in all extremities. Reflexes +1 and sy mmetrical. Plantars downgoing bilaterally. CEREBELLAR: [id number] shows no dysmetria. LABORATORY DATA: Labs reviewed. MRI of the brain shows no evidence of acute intracranial hemorrhage or infarct. Small colloid cysts; however, there is no evidence of obstructive hydrocephalus. IMPRESSION: 1. Status post near syncope. 2. History of colloid cyst of the brain. RECOMMENDATIONS: 1. The patient had a carotid ultrasound done. Please follow up the results. 2. The patient to have an electroencephalogram. 3. The patient had no further episodes of feeling like she is going to pass out. 4. Please continue other treatment and supportive care. Thank you for the opportunity to participate in the care of this patient. Jean-Pierre Henriquez MD cc: [id number] TT: 04/17/2017 12:18:12 Confirmation # [id number] Dictation # [id number] jose armando
--- NOTE | 2017-04-17 13:25 | VASCLAB ---
PROCEDURE: Lower Extremity Venous Duplex Exam. HISTORY: Leg pain PRIORS: None. TECHNIQUE: Bilateral common femoral, femoral, popliteal and posterior tibial, peroneal and great saphenous veins were evaluated. Flow was assessed with color Doppler, compressibility, assessment of phasic flow and augmentation response. Report prepared by KALEN Small, RVT FINDINGS: RIGHT: 1. Common Femoral Vein: 1.1. Compressibility - Fully compressible: Thrombus - None : Flow - Phasic: Augmentation -Normal: Reflux - None. 2. Femoral Vein: 2.1. Compressibility - Fully compressible: Thrombus - None : Flow - Phasic: Augmentation -Normal: Reflux - None. 3. Popliteal Vein: 3.1. Compressibility - Fully compressible: Thrombus - None : Flow - Phasic: Augmentation -Normal: Reflux - None. 4. Posterior Tibial Vein: 4.1. Compressibility - Fully compressible: Thrombus - None: Flow - Phasic: Augmentation -Normal: Reflux - None. 5. Peroneal Vein: 5.1. Compressibility - Fully compressible: Thrombus - None: Flow - Phasic: Augmentation -Normal: Reflux - None. 6. Great Saphenous Vein: 6.1. Compressibility - Fully compressible: Thrombus - None: Flow - Phasic: Augmentation - Normal: Reflux - None. LEFT: 1. Common Femoral Vein: 1.1. Compressibility - Fully compressible: Thrombus - None: Flow - Phasic: Augmentation -Normal: Reflux - None. 2. Femoral Vein: 2.1. Compressibility - Fully compressible: Thrombus - None: Flow - Phasic: Augmentation -Normal: Reflux - None. 3. Popliteal Vein: 3.1. Compressibility - Fully compressible: Thrombus - None : Flow - Phasic: Augmentation -Normal: Reflux - None. 4. Posterior Tibial Vein: 4.1. Compressibility - Fully compressible: Thrombus - None: Flow - Phasic: Augmentation -Normal: Reflux - None. 5. Peroneal Vein: 5.1. Compressibility - Fully compressible: Thrombus - None: Flow - Phasic: Augmentation -Normal: Reflux - None. 6. Great Saphenous Vein: 6.1. Compressibility - Fully compressible: Thrombus - None: Flow - Phasic: Augmentation - Normal: Reflux - None. OTHER FINDINGS: Right: None significant. Left: None significant. IMPRESSION: Right: No evidence of deep or superficial vein thrombosis of the right lower extremity. Normal valve function noted of the right side. Left: No evidence of deep or superficial vein thrombosis of the left lower extremity. Normal valve function noted of the left side.
--- NOTE | 2017-04-17 13:26 | VASCLAB ---
PROCEDURE: HISTORY: presyncope COMPARISON: None available. TECHNIQUE: Grayscale and duplex Doppler evaluation of the cervical carotid and vertebral arteries were performed. The common carotid, carotid bifurcations and cervical Internal Carotid Artery (ICA) and proximal External Carotid Artery (ECA) were evaluated. The vertebral arteries were evaluated for gross patency and flow direction. Report prepared by Yogesh Carrillo, BS, RVT FINDINGS: RIGHT CAROTID ARTERIES: 1. Common Carotid Artery: No significant focal plaque formation of the right common carotid artery. Maximum Peak Systolic velocity: 75 cm/sec: End-diastolic velocity 16 cm/sec. 2. Carotid Bifurcation: Calcific plaque formation. Maximum Peak Systolic velocity: 87 cm/sec: End-diastolic velocity 16 cm/sec. 3. Internal Carotid Artery: Minimal plaque formation of the right proximal ICA which does not result in hemodynamically significant stenosis. Plaque description: Calcific 3.1. Proximal Segment: Peak systolic velocity 92 cm/sec: End-diastolic velocity 22 cm/sec - % stenosis 0-15% 3.2. Middle Segment: Peak systolic velocity 77 cm/sec: End-diastolic velocity 22 cm/sec - % stenosis 0-15% 3.3. Distal Segment: Peak systolic velocity 86 cm/sec: End-diastolic velocity 30 cm/sec - % stenosis 0-15% 4. External Carotid Artery: No significant focal plaque formation. Peak systolic velocity 94 cm/sec 5. ICA/CCA Ratio: 1.2 LEFT CAROTID ARTERIES: 1. Common Carotid Artery: No significant focal plaque formation of the left common carotid artery. Maximum Peak Systolic velocity: 88 cm/sec: End-diastolic velocity 16 cm/sec. 2. Carotid Bifurcation: Calcific plaque formation. Maximum Peak Systolic velocity: 85 cm/sec: End-diastolic velocity 16 cm/sec. 3. Internal Carotid Artery: Minimal plaque formation of the left proximal ICA which does not result in hemodynamically significant stenosis. Plaque description: Heterogeneous 3.1. Proximal Segment: Peak systolic velocity 77 cm/sec: End-diastolic velocity 25 cm/sec - % stenosis 0-15% 3.2. Middle Segment: Peak systolic velocity 79 cm/sec: End-diastolic velocity 27 cm/sec - % stenosis 0-15% 3.3. Distal Segment: Peak systolic velocity 66 cm/sec: End-diastolic velocity 13 cm/sec - % stenosis 0-15% 4. External Carotid Artery: No significant focal plaque formation. Peak systolic velocity 122 cm/sec 5. ICA/CCA Ratio: 1.0 VERTEBRAL ARTERIES: 1. Right Vertebral Artery: The right vertebral artery flow direction is antegrade. 2. Left Vertebral Artery: The left vertebral artery flow direction is antegrade. OTHER FINDINGS: 1. Right Brachial Blood pressure: 168 mmHg. 2. Left Brachial Blood pressure: 166 mmHg. IMPRESSION: RIGHT: Duplex scan does not suggest hemodynamically significant stenosis of the right extracranial carotid arteries. LEFT: Duplex scan does not suggest hemodynamically significant stenosis of the left extracranial carotid arteries.
--- NOTE | 2017-04-17 14:28 | CP.PCM.PN ---
Subjective - Date & Time of Evaluation Date of Evaluation: 04/17/17 Time of Evaluation: 08:30 - Subjective Subjective: Patient seen and examined. Denies shortness of breath, denies fever or chills, denies chest pain Complaining of slight cough Denies headache Objective - Vital Signs/Intake and Output Vital Signs (last 24 hours): Temp Pulse Resp BP Pulse Ox 98.1 F 59 L 18 124/75 96 04/17/17 13:59 04/17/17 13:59 04/17/17 13:59 04/17/17 13:59 04/17/17 09:14 Intake and Output: 04/17/17 04/17/17 06:59 18:59 Intake Total 110 Balance 110 - Medications Medications: Current Medications Acetaminophen/Butalbital/Caffeine (Fioricet) 1 tab PO BID PRN PRN Reason: Migraine headache Last Admin: 04/16/17 21:49 Dose: 1 tab Alprazolam (Xanax) 0.5 mg PO BID PRN PRN Reason: Anxiety Amlodipine Besylate (Norvasc) 10 mg PO DAILY [facility] Last Admin: 04/17/17 10:33 Dose: 10 mg Aspirin (Aspirin Chewable) 81 mg PO DAILY [facility] Last Admin: 04/17/17 10:31 Dose: 81 mg Duloxetine HCl (Cymbalta) 60 mg PO DAILY [facility] Last Admin: 04/17/17 10:31 Dose: 60 mg Enoxaparin Sodium (Lovenox) 90 mg SC Q12 [facility] Last Admin: 04/17/17 10:33 Dose: 90 mg Ergocalciferol (Drisdol 50,000 Intl Units Cap) 1 cap PO QWK [facility] Last Admin: 04/16/17 10:15 Dose: 1 cap Folic Acid (Folic Acid) 1 mg PO DAILY [facility] Last Admin: 04/17/17 10:32 Dose: 1 mg Glipizide (Glucotrol Xl) 10 mg PO DAILY [facility] Last Admin: 04/17/17 10:32 Dose: 10 mg Indomethacin (Indocin) 25 mg PO TID [facility] Last Admin: 04/17/17 13:08 Dose: 25 mg Isosorbide Mononitrate (Imdur) 30 mg PO DAILY [facility] Last Admin: 04/17/17 10:32 Dose: 30 mg Lisinopril (Zestril) 20 mg PO DAILY [facility] Last Admin: 04/17/17 10:34 Dose: 20 mg Metformin HCl (Glucophage) 1,000 mg PO BID [facility] Last Admin: 04/17/17 10:32 Dose: 1,000 mg Metoprolol Tartrate (Lopressor) 50 mg PO BID [facility] Last Admin: 04/17/17 10:33 Dose: 50 mg Pantoprazole Sodium (Protonix Ec Tab) 40 mg PO DAILY [facility] Last Admin: 04/17/17 10:33 Dose: 40 mg Rosuvastatin Calcium (Crestor) 20 mg PO HS [facility] Last Admin: 04/16/17 21:49 Dose: 20 mg Topiramate (Topamax) 25 mg PO BID [facility] Last Admin: 04/17/17 13:08 Dose: 25 mg Zolpidem Tartrate (Ambien) 5 mg PO HS PRN PRN Reason: Insomnia Last Admin: 04/16/17 22:45 Dose: 5 mg - Labs Labs: 04/17/17 08:08 04/17/17 08:08 PT 10.4 SECONDS (9.7-12.2) 04/15/17 12:56 INR 0.9 04/15/17 12:56 APTT 29 SECONDS (21-34) 04/15/17 12:56 - Constitutional Appears: No Acute Distress - Head Exam Head Exam: ATRAUMATIC, NORMOCEPHALIC - Eye Exam Eye Exam: Normal appearance - ENT Exam ENT Exam: Mucous Membranes Moist - Neck Exam Neck Exam: Normal Inspection - Respiratory Exam Respiratory Exam: Clear to Ausculation Bilateral - Cardiovascular Exam Cardiovascular Exam: REGULAR RHYTHM - GI/Abdominal Exam GI & Abdominal Exam: Soft, Normal Bowel Sounds - Extremities Exam Extremities Exam: Normal Inspection - Neurological Exam Neurological Exam: Alert Assessment and Plan (1) Pulmonary embolism Assessment & Plan: VQ scan consistent with intermediate probability for pulmonary embolism Venous Dopplers of legs negative for DVT Echocardiogram showed no right-sided strain or dilatation Unable to get CT angiogram with history of multiple myeloma Continue anticoagulation for now Status: Acute (2) Near syncope Status: Acute
--- NOTE | 2017-04-17 15:03 | EEG ---
DATE: 04/16/2017 INTRODUCTION: This is a digitally recorded EEG monitoring using standard EEG montages. BACKGROUND RHYTHM: The EEG shows a background activity of 9-10 Hz alpha activity in parietooccipital region. The EEG activity is bilaterally symmetrical and synchronous. There is attenuation of the b ackground activity on eye opening. Small amount of movement artifact noticed in this EEG recording. ABNORMAL POTENTIALS: No spikes, sharp waves or focal slowing was seen. PHOTIC STIMULATION AND HYPERVENTILATION: Photic stimulation did not reveal any abnormality. Hyperve ntilation was not performed. IMPRESSION: Normal electroencephalogram. No epileptiform activity seen in this electroencephalogram recording. Jean-Pierre Henriquez MD cc: [id number] TT: 04/17/2017 15:02:25 Confirmation # [id number] Dictation # [id number] [email or web address]
[2017-04-17] MEDS: Apap-Butalbital-Caffeine 325-50-40mg Tab PO PRN (21:56)
--- NOTE | 2017-04-17 22:40 | CP.PCM.PN ---
Subjective - Date & Time of Evaluation Date of Evaluation: 04/17/17 Time of Evaluation: 11:05 - Subjective Subjective: Patient seen and evaluated Denies chest pain and dyspnea Normal EF by ECHO Review Of Systems Except As Marked, All Systems Reviewed And Found Negative. Cardiovascular: Positive for: Other (chest pressure). Negative for: Palpitations Respiratory: Positive for: Shortness of Breath, Wheezing Gastrointestinal: Positive for: Nausea, Vomiting, Abdominal Pain, Diarrhea Neurological: Positive for: Dizziness Physical Exam - Physical Exam Appears: In Acute Distress Skin: Diaphoretic, Pale Head: Normacephalic Eye(s): bilateral: Normal Inspection Oral Mucosa: Moist Cardiovascular: Rhythm Regular (tachycardic ) Respiratory: Accessory Muscle Use (mild), No Rales, No Rhonchi, Wheezing ( expiratory wheezing B/L) Gastrointestinal/Abdominal: Normal Exam, Bowel Sounds, Soft, No Tenderness Extremity: No Calf Tenderness Neurological/Psych: Oriented x3 Objective - Vital Signs/Intake and Output Vital Signs (last 24 hours): Temp Pulse Resp BP Pulse Ox 98.1 F 61 18 121/70 98 04/17/17 15:29 04/17/17 17:30 04/17/17 15:29 04/17/17 15:29 04/17/17 15:29 - Medications Medications: Current Medications Acetaminophen/Butalbital/Caffeine (Fioricet) 1 tab PO BID PRN PRN Reason: Migraine headache Last Admin: 04/17/17 21:56 Dose: 1 tab Alprazolam (Xanax) 0.5 mg PO BID PRN PRN Reason: Anxiety Amlodipine Besylate (Norvasc) 10 mg PO DAILY [facility] Last Admin: 04/17/17 10:33 Dose: 10 mg Aspirin (Aspirin Chewable) 81 mg PO DAILY [facility] Last Admin: 04/17/17 10:31 Dose: 81 mg Duloxetine HCl (Cymbalta) 60 mg PO DAILY [facility] Last Admin: 04/17/17 10:31 Dose: 60 mg Enoxaparin Sodium (Lovenox) 90 mg SC Q12 [facility] Last Admin: 04/17/17 21:56 Dose: 90 mg Ergocalciferol (Drisdol 50,000 Intl Units Cap) 1 cap PO QWK [facility] Last Admin: 04/16/17 10:15 Dose: 1 cap Folic Acid (Folic Acid) 1 mg PO DAILY [facility] Last Admin: 04/17/17 10:32 Dose: 1 mg Glipizide (Glucotrol Xl) 10 mg PO DAILY [facility] Last Admin: 04/17/17 10:32 Dose: 10 mg Indomethacin (Indocin) 25 mg PO TID [facility] Last Admin: 04/17/17 17:44 Dose: 25 mg Isosorbide Mononitrate (Imdur) 30 mg PO DAILY [facility] Last Admin: 04/17/17 10:32 Dose: 30 mg Lisinopril (Zestril) 20 mg PO DAILY [facility] Last Admin: 04/17/17 10:34 Dose: 20 mg Metformin HCl (Glucophage) 1,000 mg PO BID [facility] Last Admin: 04/17/17 17:44 Dose: 1,000 mg Metoprolol Tartrate (Lopressor) 50 mg PO BID [facility] Last Admin: 04/17/17 17:45 Dose: 50 mg Pantoprazole Sodium (Protonix Ec Tab) 40 mg PO DAILY [facility] Last Admin: 04/17/17 10:33 Dose: 40 mg Rosuvastatin Calcium (Crestor) 20 mg PO HS [facility] Last Admin: 04/17/17 21:55 Dose: 20 mg Topiramate (Topamax) 25 mg PO BID [facility] Last Admin: 04/17/17 21:57 Dose: 25 mg Zolpidem Tartrate (Ambien) 5 mg PO HS PRN PRN Reason: Insomnia Last Admin: 04/16/17 22:45 Dose: 5 mg - Labs Labs: 04/17/17 08:08 04/17/17 08:08 PT 10.4 SECONDS (9.7-12.2) 04/15/17 12:56 INR 0.9 04/15/17 12:56 APTT 29 SECONDS (21-34) 04/15/17 12:56 Assessment and Plan - Assessment and Plan (Free Text) Assessment: (1) Pulmonary embolism Assessment & Plan: VQ scan consistent with intermediate probability for pulmonary embolism Venous Dopplers of legs negative for DVT Echocardiogram showed no right-sided strain or dilatation Unable to get CT angiogram with history of multiple myeloma Continue anticoagulation for now Status: Acute (2) Near syncope Status: Acute
[2017-04-18 03:50] LABS: TOTAL PROTEIN, SERUM 7.3 g/dL (6.1-8.1)
[2017-04-18 15:06] LABS: ABNORMAL PROTEIN BAND 1 1.42 g/dL (None Detected); BETA 1 GLOBULIN 0.4 g/dL (0.4-0.6); BETA 2 GLOBULIN 0.3 g/dL (0.2-0.5); GAMMA GLOBULIN 1.7 g/dL (0.8-1.7)
--- NOTE | 2017-04-18 15:06 | CARD ---
APPROVED REPORT EKG Measurement Heart [id number] <Conclusion> Normal sinus rhythm Septal infarct, age undetermined Abnormal ECG
--- NOTE | 2017-04-18 15:07 | NM ---
PROCEDURE: Whole Body Bone Scan lingular everyone glenoid at but may again 9 amounts HISTORY: hx of multiple myloma COMPARISON: None available. TECHNIQUE: Following administration of 21.3 miCu of Tc MDP multiplanar whole body images were obtained. FINDINGS: Evidence for bony metastatic disease: None. Degenerative uptake: Incompletely visualized upper extremities primarily hands and wrists. Physiologic uptake: Normal physiologic activity in the kidneys. Other findings: None. IMPRESSION: No evidence of bony metastatic disease.
[2017-04-18 19:37] LABS: Interpretation Negative (Negative); RNP Interpretation Negative (Negative)
[2017-04-18] MEDS ORDERED: Aluminum Hydroxide/Magnesium Hydroxide Susp (30 mL) PO ONE (20:00)
[2017-04-18] MEDS ORDERED: Albuterol-Ipratrop 3 mg / 0.5 (3 ml) UD INH PRN (20:28)
--- NOTE | 2017-04-18 21:41 | CT ---
CT chest with IV contrast Indication: Chest pain, rule out PE Technique: Contiguous axial images were obtained through the chest with intravenous contrast enhancement. Sagittal and coronal reconstructions were generated and reviewed. This CT exam was performed using 1 or more of the falling dose reduction techniques: Automated exposure control, adjustment of the MAA and/or kV according to patient size, and/or use of iterative reconstruction technique. IV Contrast: 100 mL Visipaque Radiation dose (DLP): 557.85 MGy-cm. Comparison: None available Findings: Visualized portions of the inferior thyroid gland appear unremarkable. The mediastinal and hilar vascular structures appear within normal limits. The heart appears within normal limits of size. No large central or segmental pulmonary embolus evident. Linear atelectasis or scarring at the right lung apex. No focal consolidation. No pleural effusion. No pneumothorax. No suspicious pulmonary nodules measuring greater than 5 mm. Limited visualization of the upper abdomen demonstrates 1.7 x 2.2 cm low-density right adrenal gland nodule measuring approximately 1 Hounsfield unit, likely adenoma. No acute osseous abnormality is detected. Impression: No large central or segmental pulmonary embolus identified.
[2017-04-18] MEDS: Enoxaparin 100 mg Syringe SC SCH (22:23)
--- NOTE | 2017-04-18 22:32 | CP.PCM.PN ---
<Bharath Phillips - Last Filed: 04/18/17 22:37> Subjective - Date & Time of Evaluation Date of Evaluation: 04/18/17 Time of Evaluation: 14:00 - Subjective Subjective: Patient seen and evaluated Denies chest pain and dyspnea Normal EF by ECHO Review Of Systems Except As Marked, All Systems Reviewed And Found Negative. Cardiovascular: Positive for: Other (chest pressure). Negative for: Palpitations Respiratory: Positive for: Shortness of Breath, Wheezing Gastrointestinal: Positive for: Nausea, Vomiting, Abdominal Pain, Diarrhea Neurological: Positive for: Dizziness Physical Exam - Physical Exam Appears: In Acute Distress Skin: Diaphoretic, Pale Head: Normacephalic Eye(s): bilateral: Normal Inspection Oral Mucosa: Moist Cardiovascular: Rhythm Regular (tachycardic ) Respiratory: Accessory Muscle Use (mild), No Rales, No Rhonchi, Wheezing ( expiratory wheezing B/L) Gastrointestinal/Abdominal: Normal Exam, Bowel Sounds, Soft, No Tenderness Extremity: No Calf Tenderness Neurological/Psych: Oriented x3 Objective - Vital Signs/Intake and Output Vital Signs (last 24 hours): Temp Pulse Resp BP Pulse Ox 98.0 F 61 20 150/83 97 04/18/17 15:48 04/18/17 15:48 04/18/17 15:48 04/18/17 15:48 04/18/17 15:48 - Medications Medications: Current Medications Acetaminophen/Butalbital/Caffeine (Fioricet) 1 tab PO BID PRN PRN Reason: Migraine headache Last Admin: 04/17/17 21:56 Dose: 1 tab Albuterol/Ipratropium (Duoneb 3 Mg/0.5 Mg (3 Ml) Ud) 3 ml INH RQ6 PRN PRN Reason: SOB Alprazolam (Xanax) 0.5 mg PO BID PRN PRN Reason: Anxiety Amlodipine Besylate (Norvasc) 10 mg PO DAILY [facility] Last Admin: 04/17/17 10:33 Dose: 10 mg Aspirin (Aspirin Chewable) 81 mg PO DAILY [facility] Last Admin: 04/17/17 10:31 Dose: 81 mg Duloxetine HCl (Cymbalta) 60 mg PO DAILY [facility] Last Admin: 04/17/17 10:31 Dose: 60 mg Ergocalciferol (Drisdol 50,000 Intl Units Cap) 1 cap PO QWK [facility] Last Admin: 04/16/17 10:15 Dose: 1 cap Folic Acid (Folic Acid) 1 mg PO DAILY [facility] Last Admin: 04/17/17 10:32 Dose: 1 mg Glipizide (Glucotrol Xl) 10 mg PO DAILY [facility] Last Admin: 04/17/17 10:32 Dose: 10 mg Indomethacin (Indocin) 25 mg PO TID [facility] Last Admin: 04/18/17 18:00 Dose: Not Given Isosorbide Mononitrate (Imdur) 30 mg PO DAILY [facility] Last Admin: 04/17/17 10:32 Dose: 30 mg Lisinopril (Zestril) 20 mg PO DAILY [facility] Last Admin: 04/17/17 10:34 Dose: 20 mg Metformin HCl (Glucophage) 1,000 mg PO BID [facility] Last Admin: 04/18/17 18:00 Dose: Not Given Metoprolol Tartrate (Lopressor) 50 mg PO BID [facility] Last Admin: 04/18/17 18:00 Dose: Not Given Pantoprazole Sodium (Protonix Ec Tab) 40 mg PO DAILY [facility] Last Admin: 04/17/17 10:33 Dose: 40 mg Rosuvastatin Calcium (Crestor) 20 mg PO HS [facility] Last Admin: 04/18/17 22:23 Dose: 20 mg Topiramate (Topamax) 25 mg PO BID [facility] Last Admin: 04/18/17 18:00 Dose: Not Given Zolpidem Tartrate (Ambien) 5 mg PO HS PRN PRN Reason: Insomnia Last Admin: 04/18/17 22:31 Dose: 5 mg - Labs Labs: 04/17/17 08:08 04/17/17 08:08 PT 10.4 SECONDS (9.7-12.2) 04/15/17 12:56 INR 0.9 04/15/17 12:56 APTT 29 SECONDS (21-34) 04/15/17 12:56 <Amor Mcconnell S - Last Filed: 07/05/17 01:23> Objective - Vital Signs/Intake and Output Vital Signs (last 24 hours): Temp Pulse Resp BP Pulse Ox 98.0 F 61 20 150/83 97 04/18/17 15:48 04/18/17 15:48 04/18/17 15:48 04/18/17 15:48 04/18/17 15:48 - Medications Medications: Current Medications Acetaminophen/Butalbital/Caffeine (Fioricet) 1 tab PO BID PRN PRN Reason: Migraine headache Last Admin: 04/17/17 21:56 Dose: 1 tab Albuterol/Ipratropium (Duoneb 3 Mg/0.5 Mg (3 Ml) Ud) 3 ml INH RQ6 PRN PRN Reason: SOB Alprazolam (Xanax) 0.5 mg PO BID PRN PRN Reason: Anxiety Amlodipine Besylate (Norvasc) 10 mg PO DAILY [facility] Last Admin: 04/17/17 10:33 Dose: 10 mg Aspirin (Aspirin Chewable) 81 mg PO DAILY [facility] Last Admin: 04/17/17 10:31 Dose: 81 mg Duloxetine HCl (Cymbalta) 60 mg PO DAILY [facility] Last Admin: 04/17/17 10:31 Dose: 60 mg Ergocalciferol (Drisdol 50,000 Intl Units Cap) 1 cap PO QWK [facility] Last Admin: 04/16/17 10:15 Dose: 1 cap Folic Acid (Folic Acid) 1 mg PO DAILY [facility] Last Admin: 04/17/17 10:32 Dose: 1 mg Glipizide (Glucotrol Xl) 10 mg PO DAILY [facility] Last Admin: 04/17/17 10:32 Dose: 10 mg Indomethacin (Indocin) 25 mg PO TID [facility] Last Admin: 04/18/17 18:00 Dose: Not Given Isosorbide Mononitrate (Imdur) 30 mg PO DAILY [facility] Last Admin: 04/17/17 10:32 Dose: 30 mg Lisinopril (Zestril) 20 mg PO DAILY [facility] Last Admin: 04/17/17 10:34 Dose: 20 mg Metformin HCl (Glucophage) 1,000 mg PO BID [facility] Last Admin: 04/18/17 18:00 Dose: Not Given Metoprolol Tartrate (Lopressor) 50 mg PO BID [facility] Last Admin: 04/18/17 18:00 Dose: Not Given Pantoprazole Sodium (Protonix Ec Tab) 40 mg PO DAILY [facility] Last Admin: 04/17/17 10:33 Dose: 40 mg Rosuvastatin Calcium (Crestor) 20 mg PO HS [facility] Last Admin: 04/18/17 22:23 Dose: 20 mg Topiramate (Topamax) 25 mg PO BID [facility] Last Admin: 04/18/17 18:00 Dose: Not Given Zolpidem Tartrate (Ambien) 5 mg PO HS PRN PRN Reason: Insomnia Last Admin: 04/18/17 22:31 Dose: 5 mg - Labs Labs: 04/17/17 08:08 04/17/17 08:08 PT 10.4 SECONDS (9.7-12.2) 04/15/17 12:56 INR 0.9 04/15/17 12:56 APTT 29 SECONDS (21-34) 04/15/17 12:56 Attending/Attestation - Attestation I have personally seen and examined this patient.: Yes I have fully participated in the care of the patient.: Yes I have reviewed all pertinent clinical information, including history, physical exam and plan: Yes Notes (Text): Case seen and discussed with the staff and the resident
--- NOTE | 2017-04-18 22:42 | CP.PCM.PN ---
Subjective - Date & Time of Evaluation Date of Evaluation: 04/18/17 Time of Evaluation: 14:00 - Subjective Subjective: Patient seen and evaluated Denies chest pain and dyspnea Review Of Systems Except As Marked, All Systems Reviewed And Found Negative. Cardiovascular: Positive for: Other (chest pressure). Negative for: Palpitations Respiratory: Positive for: Shortness of Breath, Wheezing Gastrointestinal: Positive for: Nausea, Vomiting, Abdominal Pain, Diarrhea Neurological: Positive for: Dizziness Physical Exam - Physical Exam Appears: In Acute Distress Skin: Diaphoretic, Pale Head: Normacephalic Eye(s): bilateral: Normal Inspection Oral Mucosa: Moist Cardiovascular: Rhythm Regular (tachycardic ) Respiratory: Accessory Muscle Use (mild), No Rales, No Rhonchi, Wheezing ( expiratory wheezing B/L) Gastrointestinal/Abdominal: Normal Exam, Bowel Sounds, Soft, No Tenderness Extremity: No Calf Tenderness Neurological/Psych: Oriented x3 Objective - Vital Signs/Intake and Output Vital Signs (last 24 hours): Temp Pulse Resp BP Pulse Ox 98.0 F 61 20 150/83 97 04/18/17 15:48 04/18/17 15:48 04/18/17 15:48 04/18/17 15:48 04/18/17 15:48 - Medications Medications: Current Medications Acetaminophen/Butalbital/Caffeine (Fioricet) 1 tab PO BID PRN PRN Reason: Migraine headache Last Admin: 04/17/17 21:56 Dose: 1 tab Albuterol/Ipratropium (Duoneb 3 Mg/0.5 Mg (3 Ml) Ud) 3 ml INH RQ6 PRN PRN Reason: SOB Alprazolam (Xanax) 0.5 mg PO BID PRN PRN Reason: Anxiety Amlodipine Besylate (Norvasc) 10 mg PO DAILY [facility] Last Admin: 04/17/17 10:33 Dose: 10 mg Aspirin (Aspirin Chewable) 81 mg PO DAILY [facility] Last Admin: 04/17/17 10:31 Dose: 81 mg Duloxetine HCl (Cymbalta) 60 mg PO DAILY [facility] Last Admin: 04/17/17 10:31 Dose: 60 mg Ergocalciferol (Drisdol 50,000 Intl Units Cap) 1 cap PO QWK [facility] Last Admin: 04/16/17 10:15 Dose: 1 cap Folic Acid (Folic Acid) 1 mg PO DAILY [facility] Last Admin: 04/17/17 10:32 Dose: 1 mg Glipizide (Glucotrol Xl) 10 mg PO DAILY [facility] Last Admin: 04/17/17 10:32 Dose: 10 mg Indomethacin (Indocin) 25 mg PO TID [facility] Last Admin: 04/18/17 18:00 Dose: Not Given Isosorbide Mononitrate (Imdur) 30 mg PO DAILY [facility] Last Admin: 04/17/17 10:32 Dose: 30 mg Lisinopril (Zestril) 20 mg PO DAILY [facility] Last Admin: 04/17/17 10:34 Dose: 20 mg Metformin HCl (Glucophage) 1,000 mg PO BID [facility] Last Admin: 04/18/17 18:00 Dose: Not Given Metoprolol Tartrate (Lopressor) 50 mg PO BID [facility] Last Admin: 04/18/17 18:00 Dose: Not Given Pantoprazole Sodium (Protonix Ec Tab) 40 mg PO DAILY [facility] Last Admin: 04/17/17 10:33 Dose: 40 mg Rosuvastatin Calcium (Crestor) 20 mg PO HS [facility] Last Admin: 04/18/17 22:23 Dose: 20 mg Topiramate (Topamax) 25 mg PO BID [facility] Last Admin: 04/18/17 18:00 Dose: Not Given Zolpidem Tartrate (Ambien) 5 mg PO HS PRN PRN Reason: Insomnia Last Admin: 04/18/17 22:31 Dose: 5 mg - Labs Labs: 04/17/17 08:08 04/17/17 08:08 PT 10.4 SECONDS (9.7-12.2) 04/15/17 12:56 INR 0.9 04/15/17 12:56 APTT 29 SECONDS (21-34) 04/15/17 12:56 Assessment and Plan - Assessment and Plan (Free Text) Assessment: (1) Pulmonary embolism Assessment & Plan: VQ scan consistent with intermediate probability for pulmonary embolism Venous Dopplers of legs negative for DVT Echocardiogram showed no right-sided strain or dilatation Unable to get CT angiogram with history of multiple myeloma Continue anticoagulation for now Status: Acute (2) Near syncope Status: Acute
[2017-04-19 07:31] LABS: BASO % 0.3 % (0.0-2.0); EOS % 0.6 % (0.0-4.0); HEMATOCRIT 38.3 % (34.0-47.0); LYMPH # 1.5 K/uL (1.0-4.3); LYMPH % 20.2 % (20.0-40.0); MEAN CELL VOLUME 97.7 fL (81.0-99.0); MEAN CORPUSCULAR HEMOGLOBIN 33.8 pg (27.0-31.0); MEAN CORPUSCULAR HGB CONC 34.6 g/dL (33.0-37.0); MEAN PLATELET VOLUME 8.6 fL (7.2-11.7); MONO # 0.5 K/uL (0.0-0.8); MONO % 6.1 % (0.0-10.0); NRBC % 0.1 % (0.0-2.0); RED CELL DISTRIBUTION WIDTH 13.6 % (11.5-14.5); WHITE BLOOD COUNT 7.5 K/uL (4.8-10.8)
[2017-04-19 08:17] LABS: CCP IGG <16 Units (<20)
[2017-04-19 08:37] VITALS: BP 141/82; PULSE 57; RESP 18; TEMP 98.5
--- NOTE | 2017-04-19 09:21 | CP.PCM.PN ---
<Nury Marquez - Last Filed: 04/19/17 11:05> Subjective - Date & Time of Evaluation Date of Evaluation: 04/19/17 Time of Evaluation: 11:06 - Subjective Subjective: Medicine Progress Note Patient seen and examined. Patient states that she feels better and is no acute distress. However, she continues to complain of generalized fatigue. Patient states that she has trouble staying asleep and wakes up multiple times throughout the night. Denies fever, chills, nausea, vomiting, abdominal pain, chest pain, shortness of breath, and palpitations. Objective - Vital Signs/Intake and Output Vital Signs (last 24 hours): Temp Pulse Resp BP Pulse Ox 98.5 F 57 L 18 141/82 94 L 04/19/17 07:30 04/19/17 07:30 04/19/17 07:30 04/19/17 07:30 04/19/17 07:30 Intake and Output: 04/19/17 04/19/17 06:59 18:59 Intake Total 50 Balance 50 - Medications Medications: Current Medications Acetaminophen/Butalbital/Caffeine (Fioricet) 1 tab PO BID PRN PRN Reason: Migraine headache Last Admin: 04/17/17 21:56 Dose: 1 tab Albuterol/Ipratropium (Duoneb 3 Mg/0.5 Mg (3 Ml) Ud) 3 ml INH RQ6 PRN PRN Reason: SOB Alprazolam (Xanax) 0.5 mg PO BID PRN PRN Reason: Anxiety Amlodipine Besylate (Norvasc) 10 mg PO DAILY [facility] Last Admin: 04/17/17 10:33 Dose: 10 mg Aspirin (Aspirin Chewable) 81 mg PO DAILY [facility] Last Admin: 04/17/17 10:31 Dose: 81 mg Duloxetine HCl (Cymbalta) 60 mg PO DAILY [facility] Last Admin: 04/17/17 10:31 Dose: 60 mg Ergocalciferol (Drisdol 50,000 Intl Units Cap) 1 cap PO QWK [facility] Last Admin: 04/16/17 10:15 Dose: 1 cap Folic Acid (Folic Acid) 1 mg PO DAILY [facility] Last Admin: 04/17/17 10:32 Dose: 1 mg Glipizide (Glucotrol Xl) 10 mg PO DAILY [facility] Last Admin: 04/17/17 10:32 Dose: 10 mg Indomethacin (Indocin) 25 mg PO TID [facility] Last Admin: 04/18/17 18:00 Dose: Not Given Isosorbide Mononitrate (Imdur) 30 mg PO DAILY [facility] Last Admin: 04/17/17 10:32 Dose: 30 mg Lisinopril (Zestril) 20 mg PO DAILY [facility] Last Admin: 04/17/17 10:34 Dose: 20 mg Metformin HCl (Glucophage) 1,000 mg PO BID [facility] Last Admin: 04/18/17 18:00 Dose: Not Given Metoprolol Tartrate (Lopressor) 50 mg PO BID [facility] Last Admin: 04/18/17 18:00 Dose: Not Given Pantoprazole Sodium (Protonix Ec Tab) 40 mg PO DAILY [facility] Last Admin: 04/17/17 10:33 Dose: 40 mg Rosuvastatin Calcium (Crestor) 20 mg PO HS [facility] Last Admin: 04/18/17 22:23 Dose: 20 mg Topiramate (Topamax) 25 mg PO BID [facility] Last Admin: 04/18/17 18:00 Dose: Not Given Zolpidem Tartrate (Ambien) 5 mg PO HS PRN PRN Reason: Insomnia Last Admin: 04/18/17 22:31 Dose: 5 mg - Labs Labs: 04/19/17 07:05 04/17/17 08:08 PT 10.4 SECONDS (9.7-12.2) 04/15/17 12:56 INR 0.9 04/15/17 12:56 APTT 29 SECONDS (21-34) 04/15/17 12:56 - Constitutional Appears: Non-toxic, No Acute Distress - Head Exam Head Exam: ATRAUMATIC, NORMOCEPHALIC - Eye Exam Eye Exam: EOMI, Normal appearance - ENT Exam ENT Exam: Mucous Membranes Moist - Respiratory Exam Respiratory Exam: Clear to Ausculation Bilateral, NORMAL BREATHING PATTERN - Cardiovascular Exam Cardiovascular Exam: REGULAR RHYTHM, +S1, +S2 - GI/Abdominal Exam GI & Abdominal Exam: Soft, Normal Bowel Sounds - Extremities Exam Extremities Exam: Normal Inspection. absent: Pedal Edema - Back Exam Back Exam: NORMAL INSPECTION - Neurological Exam Neurological Exam: Alert, Awake, CN II-XII Intact, Oriented x3 - Psychiatric Exam Psychiatric exam: Normal Affect, Normal Mood - Skin Skin Exam: Dry, Intact, Normal Color, Warm Assessment and Plan - Assessment and Plan (Free Text) Assessment: 1. Elevated D dimer VQ scan- intermediate probability for PE CTA chest- no evidence of PE LE Dopplers negative for DVT ROMIs negative 2. Multiple myeloma 04/16 bone scan shows no evidence of metastasis 3. Prophylactic measures Protonix Lovenox SCDs All management per Dr Mcconnell. discussed with attending. <Amor Mcconnell S - Last Filed: 07/05/17 01:26> Objective - Vital Signs/Intake and Output Vital Signs (last 24 hours): Temp Pulse Resp BP Pulse Ox 98.5 F 57 L 18 141/82 98 04/19/17 07:30 04/19/17 07:30 04/19/17 07:30 04/19/17 07:30 04/21/17 08:51 - Labs Labs: 04/19/17 07:05 04/17/17 08:08 PT 10.4 SECONDS (9.7-12.2) 04/15/17 12:56 INR 0.9 04/15/17 12:56 APTT 29 SECONDS (21-34) 04/15/17 12:56 Attending/Attestation - Attestation I have personally seen and examined this patient.: Yes I have fully participated in the care of the patient.: Yes I have reviewed all pertinent clinical information, including history, physical exam and plan: Yes Notes (Text): Case seen and discussed with the staff and resident with this current intermediate pulmonary follow-up met other medication as ordered
[2017-04-19] MEDS: GlipiZIDE 10 mg SR Tab PO SCH (09:27)
[2017-04-19] MEDS: Pantoprazole 40 mg EC Tab PO SCH (09:27)
--- NOTE | 2017-04-19 10:25 | CP.PCM.CON ---
History of Present Illness - History of Present Illness History of Present Illness: Internet down on 04/18/17 56 year old female evaluated in the [facility] ER who developed weakness, shortness of breath and near syncope after a routine Methotrexate injection Past history includes diabetes mellitus, rheumatoid arthritis, hypertension, multiple myeloma, herniated discs and depression. Patient is undergoing cardiac and pulmonary evaluation Lab stidies requested. Review of Systems - Cardiovascular Cardiovascular: Dyspnea - Gastrointestinal Gastrointestinal: Bloating - Musculoskeletal Musculoskeletal: Arthralgias - Integumentary Integumentary: Dry Skin - Neurological Neurological: Headaches, Weakness - Psychiatric Psychiatric: Depression - Endocrine Endocrine: Fatigue Past Patient History - Past Medical History & Family History Past Medical History?: Yes - Past Social History Smoking Status: Light Smoker < 10 Cigarettes Daily Chewing Tobacco Use: No Cigar Use: No Alcohol: None - CARDIAC Hx Hypertension: Yes - NEUROLOGICAL Hx Migraine: Yes Other/Comment: brain tumor - ENDOCRINE/METABOLIC Hx Diabetes Mellitus Type 2: Yes Other/Comment: Multiple Myeloma - MUSCULOSKELETAL/RHEUMATOLOGICAL Hx Falls: No Hx Rheumatoid Arthritis: Yes - PSYCHIATRIC Hx Anxiety: Yes Hx Depression: Yes Hx Substance Use: No - SURGICAL HISTORY Hx Surgeries: No - ANESTHESIA Hx Anesthesia: No Meds Allergies/Adverse Reactions: Allergies Allergy/AdvReac Type Severity Reaction Status Date / Time No Known Allergies Allergy Verified 04/15/17 12:29 - Medications Medications: Current Medications Acetaminophen/Butalbital/Caffeine (Fioricet) 1 tab PO BID PRN PRN Reason: Migraine headache Last Admin: 04/17/17 21:56 Dose: 1 tab Albuterol/Ipratropium (Duoneb 3 Mg/0.5 Mg (3 Ml) Ud) 3 ml INH RQ6 PRN PRN Reason: SOB Alprazolam (Xanax) 0.5 mg PO BID PRN PRN Reason: Anxiety Amlodipine Besylate (Norvasc) 10 mg PO DAILY [facility] Last Admin: 04/19/17 09:26 Dose: 10 mg Aspirin (Aspirin Chewable) 81 mg PO DAILY [facility] Last Admin: 04/19/17 09:31 Dose: 81 mg Duloxetine HCl (Cymbalta) 60 mg PO DAILY [facility] Last Admin: 04/19/17 09:27 Dose: 60 mg Ergocalciferol (Drisdol 50,000 Intl Units Cap) 1 cap PO QWK [facility] Last Admin: 04/16/17 10:15 Dose: 1 cap Folic Acid (Folic Acid) 1 mg PO DAILY [facility] Last Admin: 04/19/17 09:26 Dose: 1 mg Glipizide (Glucotrol Xl) 10 mg PO DAILY [facility] Last Admin: 04/19/17 09:27 Dose: 10 mg Indomethacin (Indocin) 25 mg PO TID [facility] Last Admin: 04/19/17 09:26 Dose: 25 mg Isosorbide Mononitrate (Imdur) 30 mg PO DAILY [facility] Last Admin: 04/19/17 09:31 Dose: 30 mg Lisinopril (Zestril) 20 mg PO DAILY [facility] Last Admin: 04/19/17 09:26 Dose: 20 mg Metformin HCl (Glucophage) 1,000 mg PO BID [facility] Last Admin: 04/18/17 18:00 Dose: Not Given Metoprolol Tartrate (Lopressor) 50 mg PO BID [facility] Last Admin: 04/19/17 09:31 Dose: 50 mg Pantoprazole Sodium (Protonix Ec Tab) 40 mg PO DAILY [facility] Last Admin: 04/19/17 09:27 Dose: 40 mg Rosuvastatin Calcium (Crestor) 20 mg PO HS [facility] Last Admin: 04/18/17 22:23 Dose: 20 mg Topiramate (Topamax) 25 mg PO BID [facility] Last Admin: 04/19/17 09:26 Dose: 25 mg Zolpidem Tartrate (Ambien) 5 mg PO HS PRN PRN Reason: Insomnia Last Admin: 04/18/17 22:31 Dose: 5 mg Physical Exam - Constitutional Appears: No Acute Distress - Head Exam Head Exam: NORMAL INSPECTION - Eye Exam Eye Exam: Normal appearance Pupil Exam: NORMAL ACCOMODATION - ENT Exam ENT Exam: Normal Exam - Neck Exam Neck exam: Positive for: Normal Inspection - Respiratory Exam Respiratory Exam: Decreased Breath Sounds - GI/Abdominal Exam GI & Abdominal Exam: Normal Bowel Sounds - Rectal Exam Rectal Exam: Deferred - Exam External exam: NORMAL EXTERNAL EXAM - Extremities Exam Extremities exam: Positive for: pedal pulses present - Back Exam Back exam: NORMAL INSPECTION - Neurological Exam Neurological exam: Oriented x3 - Skin Skin Exam: Dry Results - Vital Signs Recent Vital Signs: Last Vital Signs Temp 98.5 F 04/19/17 07:30 Pulse 57 L 04/19/17 07:30 Resp 18 04/19/17 07:30 BP 141/82 04/19/17 07:30 Pulse Ox 94 L 04/19/17 07:30 - Labs Result Diagrams: 04/19/17 07:05 04/17/17 08:08 Labs: Laboratory Results - last 24 hr 04/17/17 04/17/17 04/17/17 08:08 08:08 08:08 WBC RBC Hgb Hct MCV MCH MCHC RDW Plt Count MPV Neut % (Auto) Lymph % (Auto) [place] % (Auto) Eos % (Auto) Baso % (Auto) Neut # Lymph # [place] # Eos # Baso # POC Glucose (mg/dL) Albumin (PEP) 3.7 L Uqvmq-6-Lwsvyaubp 0.3 Pgesp-4-Zikgziedk 0.9 Sdig-0-Ldpridiw 0.4 Qpks-6-Wgcmikrb 0.3 Gamma Globulins 1.7 Abnorm Protein Band 1 1.42 H Abnorm Protein Band 2 TEST NOT PERFORMED Abnorm Protein Band 3 TEST NOT PERFORMED LISSA & SPEP Interp See note Cycl Citrul Peptide IgG <16 SS-A Antibody <1.0 SS-B Ab Interp Negative SS-B Antibody <1.0 COUNSELING AIDE Antibody <1.0 COUNSELING AIDE Antibody Interp Negative TB Test (QFT) Nil 0.03 TB Test Mitogen - Nil >10.00 TB Test TB - Nil 0.00 TB Test (QFT) Negative 04/18/17 04/18/17 04/18/17 11:23 17:32 22:02 WBC RBC Hgb Hct MCV MCH MCHC RDW Plt Count MPV Neut % (Auto) Lymph % (Auto) [place] % (Auto) Eos % (Auto) Baso % (Auto) Neut # Lymph # [place] # Eos # Baso # POC Glucose (mg/dL) 142 H 141 H 166 H Albumin (PEP) Hmdec-1-Eqzsgyksr Dgmkn-7-Cmbebldvi Dguf-9-Vlcqwukn Vnqx-3-Nlznhzun Gamma Globulins Abnorm Protein Band 1 Abnorm Protein Band 2 Abnorm Protein Band 3 LISSA & SPEP Interp Cycl Citrul Peptide IgG SS-A Antibody SS-B Ab Interp SS-B Antibody COUNSELING AIDE Antibody COUNSELING AIDE Antibody Interp TB Test (QFT) Nil TB Test Mitogen - Nil TB Test TB - Nil TB Test (QFT) 04/19/17 07:05 WBC 7.5 RBC 3.92 Hgb 13.3 Hct 38.3 MCV 97.7 MCH 33.8 H MCHC 34.6 RDW 13.6 Plt Count 220 MPV 8.6 Neut % (Auto) 72.8 Lymph % (Auto) 20.2 [place] % (Auto) 6.1 Eos % (Auto) 0.6 Baso % (Auto) 0.3 Neut # 5.5 Lymph # 1.5 [place] # 0.5 Eos # 0.0 Baso # 0.0 POC Glucose (mg/dL) Albumin (PEP) Nlpxc-2-Gdsizjurb Ajmex-0-Zqujpuioo Xfkw-4-Utoyzuza Ohwu-8-Wlttyqhh Gamma Globulins Abnorm Protein Band 1 Abnorm Protein Band 2 Abnorm Protein Band 3 LISSA & SPEP Interp Cycl Citrul Peptide IgG SS-A Antibody SS-B Ab Interp SS-B Antibody COUNSELING AIDE Antibody COUNSELING AIDE Antibody Interp TB Test (QFT) Nil TB Test Mitogen - Nil TB Test TB - Nil TB Test (QFT) Assessment & Plan (1) Rheumatoid aortitis Status: Acute (2) Herniated disc Status: Acute (3) Multiple myeloma Status: Acute (4) Dyspnea Status: Acute (5) HTN (hypertension) Status: Acute (6) Near syncope Status: Acute
[2017-04-19] MEDS: Apap-Butalbital-Caffeine 325-50-40mg Tab PO PRN (12:10)
--- NOTE | 2017-04-19 13:23 | CP.PCM.PN ---
Subjective - Date & Time of Evaluation Date of Evaluation: 04/19/17 Time of Evaluation: 13:22 - Subjective Subjective: PGY-[address] Phillips Pt seen and examined. No acute complaints. Objective - Vital Signs/Intake and Output Vital Signs (last 24 hours): Temp Pulse Resp BP Pulse Ox 98.5 F 57 L 18 141/82 94 L 04/19/17 07:30 04/19/17 07:30 04/19/17 07:30 04/19/17 07:30 04/19/17 07:30 Intake and Output: 04/19/17 04/19/17 06:59 18:59 Intake Total 50 Balance 50 - Medications Medications: Current Medications Acetaminophen/Butalbital/Caffeine (Fioricet) 1 tab PO BID PRN PRN Reason: Migraine headache Last Admin: 04/19/17 12:10 Dose: 1 tab Albuterol/Ipratropium (Duoneb 3 Mg/0.5 Mg (3 Ml) Ud) 3 ml INH RQ6 PRN PRN Reason: SOB Alprazolam (Xanax) 0.5 mg PO BID PRN PRN Reason: Anxiety Amlodipine Besylate (Norvasc) 10 mg PO DAILY [facility] Last Admin: 04/19/17 09:26 Dose: 10 mg Aspirin (Aspirin Chewable) 81 mg PO DAILY [facility] Last Admin: 04/19/17 09:31 Dose: 81 mg Duloxetine HCl (Cymbalta) 60 mg PO DAILY [facility] Last Admin: 04/19/17 09:27 Dose: 60 mg Ergocalciferol (Drisdol 50,000 Intl Units Cap) 1 cap PO QWK [facility] Last Admin: 04/16/17 10:15 Dose: 1 cap Folic Acid (Folic Acid) 1 mg PO DAILY [facility] Last Admin: 04/19/17 09:26 Dose: 1 mg Glipizide (Glucotrol Xl) 10 mg PO DAILY [facility] Last Admin: 04/19/17 09:27 Dose: 10 mg Indomethacin (Indocin) 25 mg PO TID [facility] Last Admin: 04/19/17 09:26 Dose: 25 mg Isosorbide Mononitrate (Imdur) 30 mg PO DAILY [facility] Last Admin: 04/19/17 09:31 Dose: 30 mg Lisinopril (Zestril) 20 mg PO DAILY [facility] Last Admin: 04/19/17 09:26 Dose: 20 mg Metformin HCl (Glucophage) 1,000 mg PO BID [facility] Last Admin: 04/18/17 18:00 Dose: Not Given Metoprolol Tartrate (Lopressor) 50 mg PO BID [facility] Last Admin: 04/19/17 09:31 Dose: 50 mg Pantoprazole Sodium (Protonix Ec Tab) 40 mg PO DAILY [facility] Last Admin: 04/19/17 09:27 Dose: 40 mg Rosuvastatin Calcium (Crestor) 20 mg PO HS [facility] Last Admin: 04/18/17 22:23 Dose: 20 mg Topiramate (Topamax) 25 mg PO BID [facility] Last Admin: 04/19/17 09:26 Dose: 25 mg Zolpidem Tartrate (Ambien) 5 mg PO HS PRN PRN Reason: Insomnia Last Admin: 04/18/17 22:31 Dose: 5 mg - Labs Labs: 04/19/17 07:05 04/17/17 08:08 PT 10.4 SECONDS (9.7-12.2) 04/15/17 12:56 INR 0.9 04/15/17 12:56 APTT 29 SECONDS (21-34) 04/15/17 12:56 - Constitutional Appears: No Acute Distress - Head Exam Head Exam: ATRAUMATIC, NORMOCEPHALIC - Eye Exam Eye Exam: EOMI, Normal appearance - ENT Exam ENT Exam: Mucous Membranes Moist - Neck Exam Neck Exam: Normal Inspection - Respiratory Exam Respiratory Exam: Clear to Ausculation Bilateral, NORMAL BREATHING PATTERN. absent: Rales, Rhonchi, Wheezes - Cardiovascular Exam Cardiovascular Exam: REGULAR RHYTHM, +S1, +S2. absent: Murmur - GI/Abdominal Exam GI & Abdominal Exam: Soft, Normal Bowel Sounds - Extremities Exam Extremities Exam: absent: Calf Tenderness, Pedal Edema - Back Exam Back Exam: absent: CVA tenderness (L), CVA tenderness (R) - Neurological Exam Neurological Exam: Alert, Awake - Skin Skin Exam: Dry, Warm Assessment and Plan - Assessment and Plan (Free Text) Plan: 56 F with PMHx of DM2, rheumatoid arthritis, HTN, multiple myeloma, developed SOB, near syncope, vomiting after a routine Methotrexate injection. Has ruled out Pulmonary embolism Hx Multiple Myeloma - VQ scan consistent with intermediate probability for pulmonary embolism - Venous Dopplers of legs negative for DVT - Echocardiogram showed no right-sided strain or dilatation - Unable to get CT angiogram with history of multiple myeloma - Continue Lovenox 90 SC q12 - 04/16 bone scan shows no evidence of metastasis Near syncope has ruled out cardiogenic etiology - resolved - No Orthostatic Hypotension - Carotid doppler - no sig stenosis b/l - ECHO Atypical chest pain HTN, HLD Hx DM-2 - ASA 81, Lopressor 50 BID, lisinopril 20, crestor 20 - Amlodipine 10 daily - Imdur 30 daily - CV risk reduction - Metformin on hold for now Disposition: - follow up with outpatient diagnostic cardiac sonographer 1 week after discharge S/R/D/w Dr. Phillips
[2017-04-21 08:44] VITALS: O2SAT 98
[2017-04-23 19:21] LABS: SSDNA IGG AB <69 U/mL (<230)
== END 2017-04-19 13:46 | disposition home or self-care (01) | DRG 78 ==
LOC: C.ER 11:50 → EDBD 11:50 → C.9E 17:19 → C.6T 18:14
PROVIDERS: ADMIT Internal Medicine Nephrology; ATTEND Internal Medicine Nephrology
DX: I26.99 Other pulmonary embolism without acute cor pulmonale (principal); C90.00 Multiple myeloma not having achieved remission; I95.9 Hypotension, unspecified; T45.1X5A Adverse effect of antineoplastic and immunosuppressive drugs, initial encounter; R55 Syncope and collapse; E11.9 Type 2 diabetes mellitus without complications; M06.9 Rheumatoid arthritis, unspecified; F17.210 Nicotine dependence, cigarettes, uncomplicated; I10 Essential (primary) hypertension; G43.909 Migraine, unspecified, not intractable, without status migrainosus; F32.9 Major depressive disorder, single episode, unspecified; F41.9 Anxiety disorder, unspecified; G93.0 Cerebral cysts; Z79.899 Other long term (current) drug therapy; R07.89 Other chest pain